=== PATIENT | female | born 1975 | race Caucasian/White ===

== ENCOUNTER 2016-11-16 09:49 | Emergency (ER) | payer OTHER ==
[2016-11-16 11:14] LABS: Hematocrit 43 % (35-47); Hemoglobin 14.5 g/dl (12.0-16.0); Mean Corpuscular HGB Conc 34 g/dl (31-36); Mean Corpuscular Hemoglobin 34 pg (27-31); Mean Corpuscular Volume 100 fL (80-97); Mean Platelet Volume 7 um3 (7.4-10.4); Red Blood Count 4.32 10^6/ul (4.0-5.4); Red Cell Distribution Width 14 % (10.5-15); White Blood Count 6.2 10^3/ul (3.5-10.8)
[2016-11-16 11:29] LABS: ALT 27 U/L (7-52); AST 29 U/L (13-39); Albumin 4.2 g/dL (3.2-5.2); Alkaline Phosphatase 50 U/L (34-104); Anion Gap 5 mmol/L (2-11); BUN/Creatinine Ratio 17.6 (8-20); Blood Urea Nitrogen 12 mg/dL (6-24); C Reactive Protein < 1.00 mg/L (< 5.00); CO2 Carbon Dioxide 30 mmol/L (22-32); Calcium 9.6 mg/dL (8.6-10.3); Chloride 103 mmol/L (101-111); EGFR African American 121.4 (>60); EGFR Non-African American 94.4 (>60); Globulin 3.4 g/dL (2-4); Glucose 109 mg/dL (70-100); Lipase 25 U/L (11.0-82.0); Potassium 4.2 mmol/L (3.5-5.0); Sodium 138 mmol/L (133-145); Total Protein 7.6 g/dL (6.4-8.9)
[2016-11-16 12:35] LABS: Urine Bacteria 2+ (Absent); Urine Bilirubin Negative (Negative); Urine Glucose Negative (Negative); Urine Nitrite Negative (Negative)
[2016-11-16] MEDS ORDERED: Iohexol 300* (CONTRAST) 10 ML SDV IV ONE (13:41)
--- NOTE | 2016-11-16 14:41 | RAD ---
Indication: Bilateral pelvic pain. History of Crohn's disease. Comparison: October 13, 2013 CT. Technique: Transvaginal pelvic ultrasound. Report: 8.0 x 2.7 x 5.0 cm anteverted uterus. No uterine lesions evident. IUD in place in the endometrial cavity. 5.7 mm endometrium. Physiologic small volume of free pelvic fluid. 3.8 x 1.9 x 1.6 cm RIGHT ovary with documented vascular flow is remarkable for a unilocular 1.8 x 1.4 x 1.6 cm cyst without complex features consistent with a follicular cyst. 5.1 x 3.2 x 2.9 cm LEFT ovary with documented vascular flow is remarkable for multiple follicles with a dominant 2.0 x 2.3 x 2.4 cm follicular cyst without complex features. No extraovarian adnexal region lesions evident. IMPRESSION: Bilateral small follicular cysts of the ovaries. IUD appears in appropriate position. Physiologic small volume of free fluid.
[2016-11-16] MEDS ORDERED: Ondansetron INJ* 2 MG/ML VIAL IV ONE (15:18)
[2016-11-16] MEDS ORDERED: Morphine INJ* 4 MG/ML 1 ML SYRINGE IV ONE (15:18)
[2016-11-16 16:21] VITALS: BP 109/77
--- NOTE | 2016-11-16 16:24 | RAD ---
INDICATION: Right lower quadrant abdominal pain. COMPARISON: Comparison is made with a prior CT of the abdomen and pelvis from October 13, 2013. TECHNIQUE: A CT scan of the abdomen and pelvis was performed with intravenous and oral contrast following intravenous injection of 67 ml of Omnipaque 300 nonionic contrast. Contiguous axial sections were obtained from the lung bases through the symphysis pubis. Images were reconstructed in the coronal and sagittal planes. FINDINGS: The lung bases are clear. No pleural effusion is present. The liver and spleen are within normal limits in size without significant focal abnormality. No calcified gallstones are seen. The pancreas appears to be within normal limits in size. The kidneys and adrenal glands are normal in size. No hydronephrosis is seen. No significant focal renal abnormality is seen. The aorta is normal in caliber and demonstrates homogeneous contrast opacification. No significant enlarged retroperitoneal lymph nodes are seen. The stomach is nondistended. There is mild small bowel distention. There is a focal area of circumferential narrowing and wall thickening at the ileal cecal junction which likely involves the distal ileum although I cannot exclude involvement of the cecum. The anatomy is not typical and may be related to prior surgical change. The appendix is not well visualized although there is no evidence for appendicitis. No free intraperitoneal air or fluid is seen. The uterus is anteverted and normal in size. There is a T-shaped IUD present. There is a 2.5 simple appearing cyst present in the left adnexal region. No free intraperitoneal air or fluid is seen. IMPRESSION: 1. THERE IS A FOCAL AREA OF CIRCUMFERENTIAL WALL THICKENING AND NARROWING AT THE ILEOCECAL JUNCTION LIKELY INVOLVING THE DISTAL ILEUM AND ADJACENT CECUM. THIS IS A NONSPECIFIC FINDING ALTHOUGH LIKELY SECONDARY TO AN EXACERBATION OF CROHN'S DISEASE. RECOMMEND CLINICAL CORRELATION AND CONSIDER COLONOSCOPY FOR FURTHER EVALUATION. 2. 2.5 CM LEFT OVARIAN CYST.
[2016-11-16] MEDS ORDERED: metroNIDAZOLE TAB* 250 MG PO ONE (16:57)
[2016-11-16] MEDS: predniSONE TAB* 20 MG PO ONE ×2 (17:12→17:33)
--- NOTE | 2016-11-29 17:36 | ED ---
Abner Glover Adam, scribed for Wesley Leonard MD on 11/16/16 at 1213 . Abdominal Pain/Female - HPI Summary HPI Summary: Pt is a 41 year old female presenting with abdominal pain. She states that the pain has been constant since it set on last night, waking the pt from sleep. It is described as an ache with intermittent stabbing pain. It does not radiate to the back. The pain is currently a 4/10. Pt has also been vomiting since shortly after the pain set on last night. She also c/o palpitations. She denies hematuria, dysuria, diarrhea, blood in stool, sore throat, cough, CP, SOB, and vaginal bleeding. PMHx of Crohn's for which she takes Purinethol. She sees Dr. Hernadez (GI). Surgical Hx of bowel resection at age 23, as well as tonsillectomy. LMP started on 11/05. - History of Current Complaint Chief Complaint: EDAbdPain Stated Complaint: ABD PAIN Time Seen by Provider: 11/16/16 10:42 Hx Obtained From: Patient Onset/Duration: Sudden Onset, Lasting Hours, Still Present Timing: Constant Severity Initially: Moderate Severity Currently: Moderate Pain Intensity: 8 Pain Scale Used: 0-10 Numeric Location: Diffuse Radiates: No Character: Sharp - Intermittent stabbing, Other: - Constant ache Aggravating Factor(s): Nothing Alleviating Factor(s): Nothing Associated Signs and Symptoms: Positive: Nausea, Vomiting, Other: - Palpitations Allergies/Adverse Reactions: Allergies Allergy/AdvReac Type Severity Reaction Status Date / Time Amoxicillin Allergy Severe Nausea Verified 11/16/16 10:17 Levofloxacin [From Levaquin] Allergy Severe Nausea Verified 11/16/16 10:17 Aloe Allergy Swelling Verified 11/16/16 10:17 Cinnamon Allergy Swelling Verified 11/16/16 10:17 Fluconazole [From Diflucan] Allergy Unknown Verified 11/16/16 10:17 Reaction Details PMH/Surg Hx/FS Hx/Imm Hx Respiratory History: Reports: Hx Seasonal Allergies GI History: Reports: Hx Crohn's Disease, Hx Gastroesophageal Reflux Disease, Other GI Disorders - CROHNS SPLENAMEGALY Musculoskeletal History: Reports: Hx Arthritis Sensory History: Reports: Hx Contacts or Glasses Opthamlomology History: Reports: Hx Contacts or Glasses Psychiatric History: Reports: Hx Anxiety, Hx Depression - Cancer History Hx Chemotherapy: No Hx Radiation Therapy: No - Surgical History Surgery Procedure, Year, and Place: bowel resection 1996; Bartholins cyst 2008; LEEP 1996; Tonsilectomy; urethra enlargement Infectious Disease History: No Infectious Disease History: Denies: Traveled Outside the [place] in Last 30 Days - Family History Known Family History: Positive: Other - Negative breast cancer - Social History Occupation: Employed Full-time - Self-employed Lives: Alone Alcohol Use: Daily Alcohol Amount: 2 drinks daily Hx Substance Use: No Substance Use Type: Reports: None Substance Use Comment - Amount & Last Used: oxymorphone Hx Tobacco Use: Yes Smoking Status (MU): Former Smoker Type: Cigarettes Amount Used/How Often: 5/day Have You Smoked in the Last Year: Yes Review of Systems Negative: Fever, Chills Negative: Erythema Negative: Sore Throat Positive: Palpitations. Negative: Chest Pain Negative: Shortness Of Breath, Cough Positive: Abdominal Pain, Vomiting, Nausea Negative: dysuria, hematuria Negative: Myalgia, Edema Negative: Rash All Other Systems Reviewed And Are Negative: Yes Physical Exam - Summary Physical Exam Summary: Constitutional: Well-developed, Well-nourished, Alert. (-) Distressed Skin: Warm, Dry HENT: Normocephalic; Atraumatic Eyes: Conjunctiva normal Neck: Musculoskeletal ROM normal neck. (-) JVD, (-) Stridor, (-) Tracheal deviation Cardio: Rhythm regular, rate normal, Heart sounds normal; Intact distal pulses; The pedal pulses are 2+ and symmetric. Radial pulses are 2+ and symmetric. (-) Murmur Pulmonary/Chest wall: Effort normal. (-) Respiratory distress, (-) Wheezes, (-) Rales Abd: Soft, (-) Tenderness, (-) Distension, (-) Guarding, (-) Rebound Musculoskeletal: (-) Edema Lymph: (-) Cervical adenopathy Neuro: Alert, Oriented x3 Psych: Mood and affect Normal Triage Information Reviewed: Yes Vital Signs On Initial Exam: Initial Vitals Temp Pulse Resp BP Pulse Ox 97.6 F 90 18 139/78 100 11/16/16 09:54 11/16/16 09:54 11/16/16 09:54 11/16/16 09:54 04/28/17 09:54 Vital Signs Reviewed: Yes - [place] Coma Scale Coma Scale Total: 15 Diagnostics - Vital Signs Vital Signs Temp Pulse Resp BP Pulse Ox 11/16/16 11:30 109/68 11/16/16 11:00 74 96 11/16/16 10:30 76 112/74 96 11/16/16 10:17 83 99 11/16/16 10:15 127/86 11/16/16 10:11 98.3 F 80 16 127/86 99 11/16/16 09:54 97.6 F 90 18 139/78 100 - Laboratory Lab Results: Lab Results 11/16/16 11/16/16 11/16/16 Range/Units 11:03 11:03 11:03 WBC 6.2 (3.5-10.8) 10^3/ul RBC 4.32 (4.0-5.4) 10^6/ul Hgb 14.5 (12.0-16.0) g/dl Hct 43 (35-47) % MCV 100 H (80-97) fL MCH 34 H (27-31) pg MCHC 34 (31-36) g/dl RDW 14 (10.5-15) % Plt Count 228 (150-450) 10^3/ul MPV 7 L (7.4-10.4) um3 Neut % (Auto) 83.0 (38-83) % Lymph % (Auto) 9.6 L (25-47) % [place] % (Auto) 6.5 (1-9) % Eos % (Auto) 0.7 (0-6) % Baso % (Auto) 0.2 (0-2) % Absolute Neuts (auto) 5.1 (1.5-7.7) 10^3/ul Absolute Lymphs (auto) 0.6 L (1.0-4.8) 10^3/ul Absolute Monos (auto) 0.4 (0-0.8) 10^3/ul Absolute Eos (auto) 0 (0-0.6) 10^3/ul Absolute Basos (auto) 0 (0-0.2) 10^3/ul Absolute Nucleated RBC 0 10^3/ul Nucleated RBC % 0 Sodium 138 (133-145) mmol/L Potassium 4.2 (3.5-5.0) mmol/L Chloride 103 (101-111) mmol/L Carbon Dioxide 30 (22-32) mmol/L Anion Gap 5 (2-11) mmol/L BUN 12 (6-24) mg/dL Creatinine 0.68 (0.51-0.95) mg/dL Est GFR ( Amer) 121.4 (>60) Est GFR (Non-Af Amer) 94.4 (>60) BUN/Creatinine Ratio 17.6 (8-20) Glucose 109 H (70-100) mg/dL Lactic Acid 0.5 (0.5-2.0) mmol/L Calcium 9.6 (8.6-10.3) mg/dL Total Bilirubin 0.70 (0.2-1.0) mg/dL AST 29 (13-39) U/L ALT 27 (7-52) U/L Alkaline Phosphatase 50 (34-104) U/L C-Reactive Protein < 1.00 (< 5.00) mg/L Total Protein 7.6 (6.4-8.9) g/dL Albumin 4.2 (3.2-5.2) g/dL Globulin 3.4 (2-4) g/dL Albumin/Globulin Ratio 1.2 (1-3) Lipase 25 (11.0-82.0) U/L Result Diagrams: 11/16/16 11:03 11/16/16 11:03 Lab Statement: Any lab studies that have been ordered have been reviewed, and results considered in the medical decision making process. - CT A/P CT Interpretation Completed By: Radiologist - IMPRESSION: 1. THERE IS A FOCAL AREA OF CIRCUMFERENTIAL WALL THICKENING AND NARROWING AT THE ILEOCECAL JUNCTION LIKELY INVOLVING THE DISTAL ILEUM AND ADJACENT CECUM. THIS IS A NONSPECIFIC FINDING ALTHOUGH LIKELY SECONDARY TO AN EXACERBATION OF CROHN'S DISEASE. RECOMMEND CLINICAL CORRELATION AND CONSIDER COLONOSCOPY FOR FURTHER EVALUATION. 2. 2.5 CM LEFT OVARIAN CYST. - Additional Comments Diagnostic Additional Comments: Transvaginal Ultrasound - IMPRESSION: Bilateral small follicular cysts of the ovaries. IUD appears in appropriate position. Physiologic small volume of free fluid. Abdominal Pain Fem Course/Dx - Course Course Of Treatment: Patient is willing to take prednisone. She is unwilling to take Flagyl due to prior GI issues. Cipro is inappropriate. She gets GI distress from Levaquin. Due to her sensitivities and at her request, she will be given prednisone only. She will follow up with Dr. Hernadez (GI) on Saturday. - Diagnoses Provider Diagnoses: Crohn's flare Discharge - Discharge Plan Condition: Stable Disposition: HOME Prescriptions: predniSONE TAB* [Deltasone TAB*] 40 mg PO DAILY #5 tab Patient Education Materials: Crohn Disease (ED) Referrals: Elías Waite MD [Primary Care Provider] - Additional Instructions: Follow up with Dr. Hernadez (Gastroenterology) on Saturday11/19/2016. The documentation as recorded by the Abner valera Adam accurately reflects the service I personally performed and the decisions made by , Wesley Leonard MD.
== END 2016-11-16 18:13 | disposition home or self-care (01) ==
LOC: ED 09:49
DX: K50.90 Crohn's disease, unspecified, without complications (principal); R10.9 Unspecified abdominal pain; R11.2 Nausea with vomiting, unspecified; R00.2 Palpitations; Z87.891 Personal history of nicotine dependence
CPT/HCPCS: 36415; 74177; 76830; 80053; 81003; 81015; 83605; 83690; 85025; 86140; 87086; 96374; 96375; 99283; A9270-GY; J2270; J2405; J7512; Q9967

== ENCOUNTER 2017-11-21 10:07 | Inpatient (IN) | payer OTHER ==
[2017-11-21] MEDS ORDERED: Ondansetron INJ* 2 MG/ML VIAL IV ONE ×2 (10:53→13:02)
[2017-11-21] MEDS ORDERED: NS 0.9% 1000 ML* 2,000 ML IV ONE (10:53)
[2017-11-21] MEDS ORDERED: Morphine INJ* 10 MG/ML 1 ML CARPUJECT IV ONE (10:54)
[2017-11-21] MEDS ORDERED: Morphine VIAL* 4 MG/ML VIAL (1 ml vial) IV ONE ×3 (10:54→17:02)
[2017-11-21 11:11] LABS: ABS Basophils 0 10^3/ul (0-0.2); ABS Eosinophils 0 10^3/ul (0-0.6); ABS Lymphocytes 3.1 10^3/ul (1.0-4.8); ABS Monocytes 0.7 10^3/ul (0-0.8); ABS Neutrophils 5.6 10^3/ul (1.5-7.7); ABS Nucleated RBC 0 10^3/ul; Eosinophil % 0.3 % (0-6); Hematocrit 43 % (35-47); Hemoglobin 14.7 g/dl (12.0-16.0); Lymphocyte % 32.8 % (25-47); Mean Corpuscular HGB Conc 34 g/dl (31-36); Mean Corpuscular Hemoglobin 36 pg (27-31); Mean Corpuscular Volume 104 fL (80-97); Mean Platelet Volume 6.6 um3 (7.4-10.4); Nucleated Red Blood Cells % 0.1; Platelet Count 209 10^3/ul (150-450); Red Blood Count 4.14 10^6/ul (4.0-5.4); Red Cell Distribution Width 14 % (10.5-15); White Blood Count 9.5 10^3/ul (3.5-10.8)
[2017-11-21 11:30] LABS: EGFR Non-African American 57.6 (>60)
[2017-11-21 12:15] LABS: INR 0.88 (0.77-1.02)
[2017-11-21] MEDS ORDERED: Iodixanol* (CONTRAST) 320 MG/ML 100 ML SDV IV ONE (12:35)
[2017-11-21] MEDS ORDERED: Morphine INJ* 4 MG/ML 1 ML CARPUJECT IV ONE (13:02)
[2017-11-21] MEDS ORDERED: diPHENhydraMINE IV* 50 MG/ML 1 ml VIAL (BENADRYL) SLOW PUSH ONE (13:16)
[2017-11-21] MEDS ORDERED: Ondansetron ODT TAB* 4 MG PO ONE (13:18)
[2017-11-21] MEDS ORDERED: Ondansetron ODT TAB* 4 MG ONE (13:20)
--- NOTE | 2017-11-21 13:26 | RAD ---
INDICATION: Abdominal pain. Crohn disease COMPARISON: November 08, 2016 TECHNIQUE: Axial source images were obtained from the hemidiaphragms to the symphysis pubis following administration of oral and intravenous contrast. 60 mL Visipaque 320 was utilized. Coronal and sagittal reconstructed images were acquired. Lung bases: The lung bases are clear. Liver: The liver is normal in size. There are no masses. There is no ductal dilatation. Gallbladder: There are no calcified gallstones. There is no evidence of wall thickening or pericholecystic fluid. Spleen: The spleen is normal in size. There are no masses. Pancreas: There is no focal pancreatic mass or ductal dilatation. Adrenal glands: There is no evidence of adrenal mass. Kidneys: The kidneys are normal in size and position. There are prompt nephrograms and there is prompt excretion bilaterally. There are no renal parenchymal masses. There is no evidence of nephrolithiasis. Adenopathy: There is no evidence of adenopathy by size criteria. Fluid collections: There is a small amount of free fluid in the right paracolic gutter and cul-de-sac. Vessels:There are no significant atherosclerotic changes involving the aorta. There is no focal aneurysm. The iliac vessels are normal in caliber. The IVC appears normal. GI tract: The stomach is mildly distended with contrast. There are multiple dilated loops of small bowel many of which are fluid-filled. The small bowel loops measure up to 3 cm. There are postsurgical changes at the level of the terminal ileum/cecum. The colon is decompressed. Pelvic organs: The uterus and adnexa appear normal. There is an IUD Bladder: There are no bladder masses. Abdominal and pelvic soft tissues: The extraperitoneal abdominal and pelvic soft tissues appear normal.. Osseous structures: There are no acute osseous findings. Other: None IMPRESSION: THERE IS A MODERATE GRADE DISTAL SMALL BOWEL OBSTRUCTION BELIEVED TO BE AT THE DISTAL ILEUM PROBABLY AT THE SITE OF PRIOR RESECTION. THERE IS A SMALL AMOUNT OF FREE FLUID. THERE IS NO EVIDENCE OF LOCALIZED FLUID COLLECTION TO SUGGEST ABSCESS FORMATION.
[2017-11-21] MEDS ORDERED: Morphine VIAL* 4 MG/ML VIAL (1 ml vial) IV PRN (16:12)
[2017-11-21] MEDS ORDERED: KCL 20 MEQ/100 ML IVPREMIX* 20 MEQ/100 ML BAG IV ONE (16:14)
--- NOTE | 2017-11-21 17:05 | ED ---
Tj Glover Gabriel, scribed for Mariano Nieto MD on 11/21/17 at 1052 . Abdominal Pain/Female - HPI Summary HPI Summary: This patient is a 42 year old F presenting to [facility] with a chief complaint of a Chrons flair up for the last few months. The patient rates the pain 9/10 in severity. Patient reports ABD pain, nausea, and diarrhea. Patient denies blood in her stool. Pt is currently transitioning medication for her Chrons. She was on her previous medication for 17 years and 6 weeks ago she began taking Humira. She also began taking 60mg prednisone 4 weeks ago. Pt had a colonoscopy during this flair up which showed general inflammation and some stricture. Pt is concerned for a SBO and her last BM was diarrhea this morning. 20 years ago the patient had a partial colectomy. - History of Current Complaint Chief Complaint: EDAbdPain Stated Complaint: CROHNS FLARE UP Time Seen by Provider: 11/21/17 10:40 Hx Obtained From: Patient Onset/Duration: Lasting Weeks - months, Still Present Timing: Constant Severity Initially: Severe Severity Currently: Severe Pain Intensity: 9 Pain Scale Used: 0-10 Numeric Location: Diffuse Radiates: No Associated Signs and Symptoms: Positive: Nausea, Diarrhea Allergies/Adverse Reactions: Allergies Allergy/AdvReac Type Severity Reaction Status Date / Time aloe Allergy Swelling Verified 11/21/17 10:12 amoxicillin Allergy Nausea Verified 11/21/17 10:12 cinnamon Allergy Swelling Verified 11/21/17 10:12 fluconazole [From Diflucan] Allergy Unknown Verified 11/21/17 10:12 Reaction Details levofloxacin [From Levaquin] Allergy Nausea Verified 11/21/17 10:12 PMH/Surg Hx/FS Hx/Imm Hx Endocrine/Hematology History: Denies: Hx Diabetes Cardiovascular History: Denies: Hx Hypertension, Hx Pacemaker/ICD Respiratory History: Reports: Hx Seasonal Allergies GI History: Reports: Hx Crohn's Disease, Hx Gastroesophageal Reflux Disease, Other GI Disorders - CROHNS SPLENAMEGALY History: Denies: Hx Renal Disease Musculoskeletal History: Reports: Hx Arthritis Sensory History: Reports: Hx Contacts or Glasses Denies: Hx Hearing Aid Opthamlomology History: Reports: Hx Contacts or Glasses Psychiatric History: Reports: Hx Anxiety, Hx Depression Denies: Hx Panic Disorder - Cancer History Hx Chemotherapy: No Hx Radiation Therapy: No - Surgical History Surgery Procedure, Year, and Place: bowel resection 1996; Bartholins cyst 2008; LEEP 1996; Tonsilectomy; urethra enlargement Infectious Disease History: No Infectious Disease History: Denies: Traveled Outside the [place] in Last 30 Days - Family History Known Family History: Positive: Other - Negative breast cancer Negative: Seizure Disorder - Social History Lives: With Family Alcohol Use: Weekly Alcohol Amount: 10 drinks per week Hx Substance Use: No Substance Use Type: Reports: None Substance Use Comment - Amount & Last Used: oxymorphone Hx Tobacco Use: Yes Smoking Status (MU): Former Smoker Type: Cigarettes Amount Used/How Often: 5/day Have You Smoked in the Last Year: Yes Review of Systems Gastrointestinal: Negative - blood in stool Positive: Abdominal Pain, Diarrhea, Nausea Negative: Rash All Other Systems Reviewed And Are Negative: Yes Physical Exam - Summary Physical Exam Summary: General: well-appearing, moderate pain distress Skin: warm, color reflects adequate perfusion, dry Head: normal Eyes: EOMI, [place] ENT: normal Neck: supple, nontender Respiratory: CTA, breath sounds present Cardiovascular: RRR Abdomen: periumbillicar region is TTP Bowel: bowel sounds are hypoactive Musculoskeletal: normal, strength/ROM intact Neurological: normal, sensory/motor intact, A&O x3 Psychological: affect/mood appropriate Triage Information Reviewed: Yes Vital Signs On Initial Exam: Initial Vitals Temp Pulse Resp BP Pulse Ox 99.1 F 82 18 154/91 99 11/21/17 10:09 11/21/17 10:09 11/21/17 10:09 11/21/17 10:09 11/21/17 10:09 Vital Signs Reviewed: Yes Diagnostics - Vital Signs Vital Signs Temp Pulse Resp BP Pulse Ox 11/21/17 10:09 99.1 F 82 18 154/91 99 - Laboratory Lab Results: Lab Results 11/21/17 11/21/17 11/21/17 Range/Units 10:54 10:54 11:44 WBC 9.5 (3.5-10.8) 10^3/ul RBC 4.14 (4.0-5.4) 10^6/ul Hgb 14.7 (12.0-16.0) g/dl Hct 43 (35-47) % MCV 104 H (80-97) fL MCH 36 H (27-31) pg MCHC 34 (31-36) g/dl RDW 14 (10.5-15) % Plt Count 209 (150-450) 10^3/ul MPV 6.6 L (7.4-10.4) um3 Neut % (Auto) 59.4 (38-83) % Lymph % (Auto) 32.8 (25-47) % [place] % (Auto) 7.2 H (0-7) % Eos % (Auto) 0.3 (0-6) % Baso % (Auto) 0.3 (0-2) % Absolute Neuts (auto) 5.6 (1.5-7.7) 10^3/ul Absolute Lymphs (auto) 3.1 (1.0-4.8) 10^3/ul Absolute Monos (auto) 0.7 (0-0.8) 10^3/ul Absolute Eos (auto) 0 (0-0.6) 10^3/ul Absolute Basos (auto) 0 (0-0.2) 10^3/ul Absolute Nucleated RBC 0 10^3/ul Nucleated RBC % 0.1 INR (Anticoag Therapy) 0.88 (0.77-1.02) Sodium 141 (139-145) mmol/L Potassium 3.4 L (3.5-5.0) mmol/L Chloride 102 (101-111) mmol/L Carbon Dioxide 32 (22-32) mmol/L Anion Gap 7 (2-11) mmol/L BUN 14 (6-24) mg/dL Creatinine 1.04 H (0.51-0.95) mg/dL Est GFR ( Amer) 74.0 (>60) Est GFR (Non-Af Amer) 57.6 (>60) BUN/Creatinine Ratio 13.5 (8-20) Glucose 92 (70-100) mg/dL Lactic Acid (0.5-2.0) mmol/L Calcium 9.7 (8.6-10.3) mg/dL Total Bilirubin 1.00 (0.2-1.0) mg/dL AST 28 (13-39) U/L ALT 37 (7-52) U/L Alkaline Phosphatase 50 (34-104) U/L C-Reactive Protein < 1.00 (< 5.00) mg/L Total Protein 7.2 (6.4-8.9) g/dL Albumin 4.3 (3.2-5.2) g/dL Globulin 2.9 (2-4) g/dL Albumin/Globulin Ratio 1.5 (1-3) Lipase 26 (11.0-82.0) U/L 11/21/17 Range/Units 11:44 WBC (3.5-10.8) 10^3/ul RBC (4.0-5.4) 10^6/ul Hgb (12.0-16.0) g/dl Hct (35-47) % MCV (80-97) fL MCH (27-31) pg MCHC (31-36) g/dl RDW (10.5-15) % Plt Count (150-450) 10^3/ul MPV (7.4-10.4) um3 Neut % (Auto) (38-83) % Lymph % (Auto) (25-47) % [place] % (Auto) (0-7) % Eos % (Auto) (0-6) % Baso % (Auto) (0-2) % Absolute Neuts (auto) (1.5-7.7) 10^3/ul Absolute Lymphs (auto) (1.0-4.8) 10^3/ul Absolute Monos (auto) (0-0.8) 10^3/ul Absolute Eos (auto) (0-0.6) 10^3/ul Absolute Basos (auto) (0-0.2) 10^3/ul Absolute Nucleated RBC 10^3/ul Nucleated RBC % INR (Anticoag Therapy) (0.77-1.02) Sodium (139-145) mmol/L Potassium (3.5-5.0) mmol/L Chloride (101-111) mmol/L Carbon Dioxide (22-32) mmol/L Anion Gap (2-11) mmol/L BUN (6-24) mg/dL Creatinine (0.51-0.95) mg/dL Est GFR ( Amer) (>60) Est GFR (Non-Af Amer) (>60) BUN/Creatinine Ratio (8-20) Glucose (70-100) mg/dL Lactic Acid 1.2 (0.5-2.0) mmol/L Calcium (8.6-10.3) mg/dL Total Bilirubin (0.2-1.0) mg/dL AST (13-39) U/L ALT (7-52) U/L Alkaline Phosphatase (34-104) U/L C-Reactive Protein (< 5.00) mg/L Total Protein (6.4-8.9) g/dL Albumin (3.2-5.2) g/dL Globulin (2-4) g/dL Albumin/Globulin Ratio (1-3) Lipase (11.0-82.0) U/L Result Diagrams: 11/21/17 10:54 11/21/17 10:54 Lab Statement: Any lab studies that have been ordered have been reviewed, and results considered in the medical decision making process. - CT CT ABD/Pelvis CT Interpretation Completed By: Radiologist - THERE IS A MODERATE GRADE DISTAL SMALL BOWEL OBSTRUCTION BELIEVED TO BE AT THE DISTAL ILEUM PROBABLY AT THE SITE OF PRIOR RESECTION. THERE IS A SMALL AMOUNT OF FREE FLUID. THERE IS NO EVIDENCE OF LOCALIZED FLUID COLLECTION TO SUGGEST ABSCESS FORMATION. ED physician has reviewed this radiology report. Abdominal Pain Fem Course/Dx - Course Course Of Treatment: DISCUSSED WITH SURGERY, DR GREGG, AND HOSPITALIST. ADMIT HOSPITALIST. CRITICAL CARE TIME LESS THAN 30 MINUTES. - Diagnoses Provider Diagnoses: Abdominal pain, Crohn's disease with intestinal obstruction Discharge - Sign-Out/Discharge Documenting (check all that apply): Discharge/Admit/Transfer - admitted to Dr. Hightower - Discharge Plan Condition: Stable Disposition: [facility] Disposition and Condition Condition: STABLE Disposition: [facility] Consult Consult: 13:45We discussed patient care with Dr. Gregg and they recommended admitting the patient to the hospitalist. 14:37 We discussed patient care with Dr. Hightower and they have accepted the patient for admission. The documentation as recorded by the Tj valera Gabriel accurately reflects the service I personally performed and the decisions made by me, Mariano Nieto MD.
[2017-11-21] MEDS: methylPREDNISolone SOD 40 MG* 1 ML VIAL IV SCH (17:06)
[2017-11-21] MEDS: Ondansetron INJ* 2 MG/ML VIAL IV PRN (17:44)
[2017-11-21] MEDS: KCL premix 10MEQ/50 ML x 2 BAGS IV SCH ×2 (17:45→21:09)
--- NOTE | 2017-11-21 20:15 | CONS ---
CC: [facility] * CONSULTATION REPORT: DATE OF CONSULT: 11/21/17 CHIEF COMPLAINT: Abdominal pain. HISTORY OF PRESENT ILLNESS: The patient is a 42-year-old female with a longstanding history of Crohn's disease. She had what sounds like an ileocecal resection done may be 20 years ago. She said she has been stable on 6-MP for may be 15 years or more, but started to have some liver toxicity, so they have been trying to change her medications. This flare-up has been going on for a few months characterized primarily by pain. She often has irregularity of her bowel movements and may be that has been a little heightened. She comes in today with a greater degree of pain and she has been having of late no vomiting , but she is having nausea. She has had some diarrhea earlier today. No blood in the stool. She had a colonoscopy performed about 6 weeks ago, which showed active ulceration in the region of the anastomosis as well as some stricturing at the anastomosis. She has recently been started on Humira in addition to the steroids. PHYSICAL EXAMINATION: On examination, she is a well-developed, well-nourished slender female, does not appear acutely ill, but does appear acutely uncomfortable. Skin is warm, well perfused. She is not diaphoretic. She is not jaundiced. Abdomen appears distended. There is some tympany. There is mild diffuse tenderness, may be more in the periumbilical region than elsewhere. There is no rebound tenderness. No guarding. There is a hypertrophic scar in the infraumbilical region. She states that at the time of her previous surgery, she had a postop wound infection that took a long time to heal. LABORATORY DATA: Her laboratory studies show normal white count, normal differential, normal INR, essentially normal electrolytes. C-reactive protein is normal. IMAGING: Her CT scan shows dilated small bowel to about 3 cm, which appears to go all the way up to the ileocolic anastomosis. IMPRESSION: A 42-year-old female with longstanding Crohn's disease battling through a recent flare-up who has a partial bowel obstruction in what appears to be at the region of the prior disease. She has a relatively recent colonoscopy that shows active disease in that region. PLAN: At this point, there is no need for emergent surgery and I recommend gastroenterology evaluation to see what other medical therapies may be helpful. We will follow her somewhat peripherally at present, but if she does not respond to medical therapy or worsens in any way, we can revisit the issue of whether surgery is warranted. [id number]/[facility] #: [id number] MTDGary
--- NOTE | 2017-11-21 20:48 | HP ---
CC: Dr. Waite.* HISTORY AND PHYSICAL: DATE OF ADMISSION: 11/21/17. PROVIDER: Leanne Grant NP. PRIMARY CARE PROVIDER: Dr. Waite. ATTENDING PHYSICIAN WHILE IN THE HOSPITAL: Dr. Tyler Hightower * (dictated by Leanne Grant NP). CHIEF COMPLAINT: Abdominal pain. HISTORY OF PRESENT ILLNESS: Ms. Azar is a 42-year-old female, who has a history of Crohn's disease and arthritis, who presented to the emergency room with progressively worsening lower abdominal pain x2 days, more severe overnight , nausea. The patient reports that she has been in a Crohn's flare for 3 months and that she has been being worked up by her frame repairer as an outpatient. She denies any fever or chills. She denies any vomiting. She does report nausea and diarrhea. She does report some lower abdominal pain. She denies any cough or congestion. Denies any hemoptysis or shortness of breath. Denies any loss of appetite. While in the emergency room, she had routine lab work drawn and a CT of the abdomen and pelvis which showed small bowel obstruction. Given these results, we were asked to see and evaluate her for admission. PAST MEDICAL HISTORY: 1. Crohn's disease. 2. Arthritis. PAST SURGICAL HISTORY: Bowel resection. MEDICATIONS: Home medications include: 1. Oxymorphone 5 mg q.i.d. 2. Prednisone 60 mg p.o. daily. 3. Humira every 2 weeks, doses due on Saturday, November 25. 5. Hyoscyamine 0.375 mg p.o. daily p.r.n. 6. Calcium carbonate 1200 mg p.o. daily. 7. Probiotics 1 cap daily. 8. Ascorbic acid 1000 mg daily. 9. Vitamin D 1000 units daily. 10. Vitamin B complex 1 tablet p.o. daily. ALLERGIES TO MEDICATIONS: She is allergic to, 1. ALOE. 2. AMOXICILLIN. 3. CINNAMON. 4. DIFLUCAN. 5. LEVOFLOXACIN. FAMILY HISTORY: Denies any history of coronary artery disease and denies any diabetes within the family. Reports one grandmother had uterine cancer, another grandmother had lung cancer. SOCIAL HISTORY: She denies any tobacco or illicit drug use. She does report occasional alcohol use. She is single. In the event if she is unable to make her own medical decisions, her friend, Ortiz would make medical decisions for her. She is a full code. REVIEW OF SYSTEMS: There is no documented fevers. No significant weight loss. She denies any ear drainage. She denies any rhinorrhea. She does complain of a dry mouth. She denies any chest pain. Denies orthopnea, nocturnal dyspnea. She denies any shortness of breath. She does report lower abdominal pain that has for the last week that is progressively getting worse over the past 2 days and then more severe overnight. She does report some nausea. Denies any vomiting. No dysuria or urinary frequency. There is no seizures. No loss of consciousness. No pruritus. No skin ulcerations. Review of 14 systems was completed and all others were negative. PHYSICAL EXAMINATION GENERAL: At this time, Ms. Azar is a 42-year-old female, she appears comfortable, resting on the stretcher in the emergency room. She is not in any acute distress. VITAL SIGNS: As follows, blood pressure 124/87, pulses 91, oxygen saturation is 95%, temperature was 99.1. HEENT: Head is atraumatic, normocephalic. Eyes: EOMs are intact. Sclerae anicteric and not pale. Oral mucosa appears to be moist. NECK: Supple. LUNGS: Clear to auscultation bilaterally. No wheezes, rales, or rhonchi. CARDIAC: S1, S2. Regular rate and rhythm. No murmurs, rubs, or gallops. ABDOMEN: Soft, flat with diffuse increased tenderness to the left lower quadrant. Bowel sounds are present x4. EXTREMITIES: Pulses are +2 throughout. She is able to move all 4 extremities with 5/5 strength. NEUROLOGIC: She is alert and oriented x3. Speech is clear. There is no focal deficits. SKIN: Intact. DIAGNOSTIC STUDIES AND LABORATORY DATA: WBC were 9.5, RBC is 4.14, hemoglobin 14.7, hematocrit was 43, platelet count was 209. INR was 0.88. Sodium 141, potassium 3.4, chloride was 102, carbon dioxide was 32, anion gap was 7, BUN was 14, creatinine was 1.04, glucose of 92, lactic acid was 1.2. AST was 28, ALT was 37. C-reactive protein was less than 1. Lipase was 26. CT of the abdomen and pelvis, radiologist's impression: There is a moderate distal small bowel obstruction believed to be at the distal ilium probably at the site of prior resection. There is a small amount of free fluid. There is no evidence of localized fluid collection to suggest abscess formation in the GI tract. The stomach was mildly distended to the contrast. There were multiple dilated loops of small bowel, many of which were fluid filled. The small bowel loops measure up to 3 cm. There are some post-surgical changes at the level of the terminal ileum and the cecum. The colon is decompressed. ASSESSMENT AND PLAN: Ms. Azar is a 42-year-old female, who has a history of Crohn's disease and arthritis presented to the emergency room with a progressively worsening abdominal pain over the past 2 days with increased abdominal pain overnight. She will be admitted inpatient for: 1. Abdominal pain. I suspect that this is probably related to her small bowel obstruction. She does have a history of Crohn's disease, which she reports has been in a flare x3 months, and has been worked up as an outpatient for management of her Crohn's flare up. I have consulted surgery, Dr. Stone and I will consult GI as well. She will be n.p.o. We will start LR at 75 cc/hour. She will have Morphine for pain as needed. 2. Crohn's disease. She has 3 months history of a Crohn's flare-up, which she has had been worked up as an outpatient. She is currently on prednisone 60 mg p.o. daily and Humira q.2 weeks with a dose due on 11/25/17. Again, I will consult frame repairer for recommendations. 3. Hypokalemia. I will give her 20 mEq of potassium IV. Elevated creatinine at 1.04. Her baseline level is usually 0.68. We will continue to monitor this. 4. Diet. She will be n.p.o. 5. DVT prophylaxis. I will place her on SCDs. 6. Code status. She is a full code. TIME SPENT: Time spent on this admission was approximately 60 minutes, greater than half that time was spent [id number] with the patient obtaining my history and physical, the other half of the time was spent going over my plan of care and implementing the plan of care. I have discussed this with my attending, Dr. Tyler Hightower, and he is in agreement with my plan. LEANNE GRANT, AQUATIC FACILITY MANAGER [id number]/[facility] #: [id number] [facility]OSPITALGary
[2017-11-21] MEDS: Morphine VIAL* 4 MG/ML VIAL (1 ml vial) IV PRN (21:16)
[2017-11-22] MEDS: methylPREDNISolone SOD 40 MG* 1 ML VIAL IV SCH ×3 (00:41→16:57)
[2017-11-22 01:07] LABS: Urine Appearance Cloudy; Urine Blood 2+ (Negative); Urine Color Yellow; Urine Ketones Trace (Negative); Urine Protein Negative (Negative); Urine Urobilinogen Negative (Negative)
[2017-11-22 05:45] LABS: ABS Basophils 0 10^3/ul (0-0.2); ABS Eosinophils 0 10^3/ul (0-0.6); ABS Lymphocytes 0.6 10^3/ul (1.0-4.8); ABS Monocytes 0.1 10^3/ul (0-0.8); ABS Neutrophils 8.7 10^3/ul (1.5-7.7); ABS Nucleated RBC 0 10^3/ul; Eosinophil % 0 % (0-6); Hematocrit 39 % (35-47); Hemoglobin 13.6 g/dl (12.0-16.0); Lymphocyte % 6.5 % (25-47); Mean Corpuscular HGB Conc 35 g/dl (31-36); Mean Corpuscular Hemoglobin 36 pg (27-31); Mean Corpuscular Volume 103 fL (80-97); Mean Platelet Volume 6.9 um3 (7.4-10.4); Nucleated Red Blood Cells % 0; Platelet Count 187 10^3/ul (150-450); Red Blood Count 3.82 10^6/ul (4.0-5.4); Red Cell Distribution Width 14 % (10.5-15); White Blood Count 9.5 10^3/ul (3.5-10.8)
[2017-11-22 06:04] LABS: EGFR Non-African American 70.7 (>60)
[2017-11-22] MEDS: Morphine VIAL* 4 MG/ML VIAL (1 ml vial) IV PRN ×6 (08:46→21:28)
--- NOTE | 2017-11-22 10:54 | PN ---
Progress Note - Progress Note Date of Service: 11/22/17 Note: HD#2 SBO w/ Crohn's flare Afeb UO large Less pain, feels a little better, no flatus, No n/v add--soft, distillery worker general, though less than yest, seems less distended I reviewed photos from colonoscopy, and d/w Dr Almonte Impr SBO seems to be improving Medical treatment of Crohn's per Gastro No surgery unless medical options exhausted
--- NOTE | 2017-11-22 11:08 | RAD ---
Indication: Small bowel obstruction Comparison: November 21, 2017 CT Technique: Supine view of the abdomen. Report: Resolution of small bowel dilatation. Distal propagation of enteric contrast to the colon. Negative for colonic dilatation. Pelvic phleboliths. No suspicious calcifications or mass effect. IUD noted. Unremarkable soft tissue contours. IMPRESSION: Interval resolution of small bowel obstruction.
--- NOTE | 2017-11-22 12:40 | PN ---
Subjective Date of Service: 11/22/17 Interval History: Patient states that she is feeling better, abd pain is controlled, continue to c/o diffuse abd tenderness Denies chest pain or shortness of breath. Denies n/v /d Family History: Unchanged from Admission Social History: Unchanged from Admission Past Medical History: Unchanged from Admission Objective Active Medications: Lactated Ringer's (Lactated Ringers 1000 Ml Bag*) 1,000 mls @ 75 mls/hr IV PER RATE [facility] Last Admin: 11/22/17 05:59 Dose: 75 mls/hr Methylprednisolone Sodium Succinate (Solu-Medrol 40 Mg) 20 mg IV Q8H [facility] Last Admin: 11/22/17 08:47 Dose: 20 mg Morphine Sulfate (Morphine Vial*) 2 mg IV Q2H PRN PRN Reason: PAIN - MODERATE TO SEVERE Last Admin: 11/22/17 11:00 Dose: 2 mg Ondansetron HCl (Zofran Inj*) 4 mg IV Q4H PRN PRN Reason: NAUSEA/VOMITING Last Admin: 11/21/17 17:44 Dose: 4 mg Vital Signs - 8 hr 11/22/17 11/22/17 11/22/17 07:52 08:00 08:46 Temperature 98.4 F Pulse Rate 70 Respiratory 13 15 15 Rate Blood Pressure 112/66 (mmHg) O2 Sat by Pulse 98 Oximetry 11/22/17 11/22/17 11/22/17 11:00 11:21 11:27 Temperature 98.5 F Pulse Rate 80 Respiratory 16 18 16 Rate Blood Pressure 143/86 (mmHg) O2 Sat by Pulse 97 Oximetry Oxygen Devices in Use Now: None Appearance: appears comfortable restingin bed. no acute distress Eyes: No Scleral Icterus Ears/Nose/Mouth/Throat: Clear Oropharnyx, Mucous Membranes Moist Neck: NL Appearance and Movements; NL JVP, Trachea Midline Respiratory: Symmetrical Chest Expansion and Respiratory Effort, Clear to Auscultation Cardiovascular: NL Sounds; No Murmurs; No JVD, No Edema Abdominal: NL Sounds; No Tenderness; No Distention, - - BS active x 4 , abd mildly distended, diffuse tenderness to palpation, mainly in the umbilical and RUQ Lymphatic: No Cervical Adenopathy Extremities: No Edema, No Clubbing, Cyanosis Skin: No Rash or Ulcers Neurological: Alert and Oriented x 3, NL Gait, NL Muscle Strength and Tone Nutrition: - - NPO Result Diagrams: 11/22/17 05:29 11/22/17 05:29 Additional Lab and Data: Lab Results 11/21/17 11/21/17 11/21/17 Range/Units 10:54 10:54 11:44 WBC 9.5 (3.5-10.8) 10^3/ul RBC 4.14 (4.0-5.4) 10^6/ul Hgb 14.7 (12.0-16.0) g/dl Hct 43 (35-47) % MCV 104 H (80-97) fL MCH 36 H (27-31) pg MCHC 34 (31-36) g/dl RDW 14 (10.5-15) % Plt Count 209 (150-450) 10^3/ul MPV 6.6 L (7.4-10.4) um3 Neut % (Auto) 59.4 (38-83) % Lymph % (Auto) 32.8 (25-47) % [place] % (Auto) 7.2 H (0-7) % Eos % (Auto) 0.3 (0-6) % Baso % (Auto) 0.3 (0-2) % Absolute Neuts (auto) 5.6 (1.5-7.7) 10^3/ul Absolute Lymphs (auto) 3.1 (1.0-4.8) 10^3/ul Absolute Monos (auto) 0.7 (0-0.8) 10^3/ul Absolute Eos (auto) 0 (0-0.6) 10^3/ul Absolute Basos (auto) 0 (0-0.2) 10^3/ul Absolute Nucleated RBC 0 10^3/ul Nucleated RBC % 0.1 INR (Anticoag Therapy) 0.88 (0.77-1.02) Sodium 141 (139-145) mmol/L Potassium 3.4 L (3.5-5.0) mmol/L Chloride 102 (101-111) mmol/L Carbon Dioxide 32 (22-32) mmol/L Anion Gap 7 (2-11) mmol/L BUN 14 (6-24) mg/dL Creatinine 1.04 H (0.51-0.95) mg/dL Est GFR ( Amer) 74.0 (>60) Est GFR (Non-Af Amer) 57.6 (>60) BUN/Creatinine Ratio 13.5 (8-20) Glucose 92 (70-100) mg/dL Lactic Acid (0.5-2.0) mmol/L Calcium 9.7 (8.6-10.3) mg/dL Total Bilirubin 1.00 (0.2-1.0) mg/dL AST 28 (13-39) U/L ALT 37 (7-52) U/L Alkaline Phosphatase 50 (34-104) U/L C-Reactive Protein < 1.00 (< 5.00) mg/L Total Protein 7.2 (6.4-8.9) g/dL Albumin 4.3 (3.2-5.2) g/dL Globulin 2.9 (2-4) g/dL Albumin/Globulin Ratio 1.5 (1-3) Lipase 26 (11.0-82.0) U/L 11/21/17 Range/Units 11:44 WBC (3.5-10.8) 10^3/ul RBC (4.0-5.4) 10^6/ul Hgb (12.0-16.0) g/dl Hct (35-47) % MCV (80-97) fL MCH (27-31) pg MCHC (31-36) g/dl RDW (10.5-15) % Plt Count (150-450) 10^3/ul MPV (7.4-10.4) um3 Neut % (Auto) (38-83) % Lymph % (Auto) (25-47) % [place] % (Auto) (0-7) % Eos % (Auto) (0-6) % Baso % (Auto) (0-2) % Absolute Neuts (auto) (1.5-7.7) 10^3/ul Absolute Lymphs (auto) (1.0-4.8) 10^3/ul Absolute Monos (auto) (0-0.8) 10^3/ul Absolute Eos (auto) (0-0.6) 10^3/ul Absolute Basos (auto) (0-0.2) 10^3/ul Absolute Nucleated RBC 10^3/ul Nucleated RBC % INR (Anticoag Therapy) (0.77-1.02) Sodium (139-145) mmol/L Potassium (3.5-5.0) mmol/L Chloride (101-111) mmol/L Carbon Dioxide (22-32) mmol/L Anion Gap (2-11) mmol/L BUN (6-24) mg/dL Creatinine (0.51-0.95) mg/dL Est GFR ( Amer) (>60) Est GFR (Non-Af Amer) (>60) BUN/Creatinine Ratio (8-20) Glucose (70-100) mg/dL Lactic Acid 1.2 (0.5-2.0) mmol/L Calcium (8.6-10.3) mg/dL Total Bilirubin (0.2-1.0) mg/dL AST (13-39) U/L ALT (7-52) U/L Alkaline Phosphatase (34-104) U/L C-Reactive Protein (< 5.00) mg/L Total Protein (6.4-8.9) g/dL Albumin (3.2-5.2) g/dL Globulin (2-4) g/dL Albumin/Globulin Ratio (1-3) Lipase (11.0-82.0) U/L Assess/Plan/Problems-Billing Assessment: Ms. Azar is a 42 y.o female with a long standing hx of crohn's disease, bowel resection that presented to the emergency room with increased abd pain. CT of the ABD showed SBO. - Patient Problems (1) SBO (small bowel obstruction) Current Visit: Yes Status: Acute Code(s): K56.609 - UNSP INTESTNL OBST, UNSP TO PARTIAL VERSUS COMPLETE OBST SNOMED Code(s): 471121529 Comment: - Will remain NPO - LR at 75 cc/ hr - consult to GI- pending - surgery consulted -- no need for emergent surgery at this time. (2) Crohn's disease Current Visit: Yes Status: Acute Code(s): K50.90 - CROHN'S DISEASE, UNSPECIFIED, WITHOUT COMPLICATIONS SNOMED Code(s): 93851255 Comment: - will continue solumedrol 20 mg Q8H- patient has been 60 mg prednisone at home for 4 weeks - NPO for now - Dose of Humeria is due on saturday11/25/2017 (3) Arthritis Current Visit: Yes Status: Acute Code(s): M19.90 - UNSPECIFIED OSTEOARTHRITIS, UNSPECIFIED SITE SNOMED Code(s): 6790649 Comment: - patient take oxymorphone at home for pain- 5mg TID- will hold for now as she is NPO - recieiving Morphine 2 mg Q 2 hours as neded for abd pain. - no c/o of arthritic pain today. (4) DVT prophylaxis Current Visit: Yes Status: Acute Code(s): FXX2347 - SNOMED Code(s): 371915595 Comment: - SCD's, ambulate (5) Full code status Current Visit: Yes Status: Acute Code(s): Z78.9 - OTHER SPECIFIED HEALTH STATUS SNOMED Code(s): 513656537 Status and Disposition: inpatient
[2017-11-22] MEDS: Albuterol/Ipratropium NEB.SOL* Albuterol 2.5 MG/Ipratropium 0.5 MG 3 ML INH SCH ×2 (20:07→23:46)
[2017-11-23] MEDS: methylPREDNISolone SOD 40 MG* 1 ML VIAL IV SCH ×3 (01:02→18:22)
[2017-11-23] MEDS: Morphine VIAL* 4 MG/ML VIAL (1 ml vial) IV PRN ×3 (01:35→09:51)
[2017-11-23] MEDS: Albuterol/Ipratropium NEB.SOL* Albuterol 2.5 MG/Ipratropium 0.5 MG 3 ML INH SCH ×2 (03:50→07:36)
[2017-11-23] MEDS ORDERED: Albuterol 2.5 MG/3 ML NEB.SOL* (0.083%) INH PRN (10:10)
[2017-11-23] MEDS ORDERED: Al Hydrox/Mg Hydrox/Simet LIQ* 30 ML UDC PO PRN (10:59)
--- NOTE | 2017-11-23 11:03 | PN ---
Subjective Date of Service: 11/23/17 Interval History: Patient was seen and examined at bedside. Reports intermittent abdominal pain, relieved with Morphine. Denies nausea or vomiting. Passing some flatus, feels hungry, but very nervous about resuming diet. Also notes some GERD symptoms last night, resolved this AM. Denies chest pain, palpitations or SOB. Family History: Unchanged from Admission Social History: Unchanged from Admission Past Medical History: Unchanged from Admission Objective Active Medications: Albuterol (Ventolin 2.5 Mg/3 Ml Neb.Nilda*) 2.5 mg INH Q4H PRN PRN Reason: SOB/WHEEZING Lactated Ringer's (Lactated Ringers 1000 Ml Bag*) 1,000 mls @ 75 mls/hr IV PER RATE COUNT INCLUDES [facility] Last Admin: 11/23/17 10:04 Dose: 75 mls/hr Methylprednisolone Sodium Succinate (Solu-Medrol 40 Mg) 20 mg IV Q8H COUNT INCLUDES THE [facility] Last Admin: 11/23/17 09:50 Dose: 20 mg Morphine Sulfate (Morphine Vial*) 4 mg IV Q4H PRN PRN Reason: PAIN - MODERATE TO SEVERE Last Admin: 11/23/17 09:51 Dose: 4 mg Ondansetron HCl (Zofran Inj*) 4 mg IV Q4H PRN PRN Reason: NAUSEA/VOMITING Last Admin: 11/21/17 17:44 Dose: 4 mg Oxycodone/Acetaminophen (Percocet 5/325 Tab*) 2 tab PO Q6H PRN PRN Reason: PAIN Vital Signs - 8 hr 11/23/17 11/23/17 11/23/17 02:57 03:31 05:36 Temperature 98.0 F Pulse Rate 65 Respiratory 16 14 16 Rate Blood Pressure 131/66 (mmHg) O2 Sat by Pulse 96 Oximetry 11/23/17 11/23/17 11/23/17 07:25 08:00 09:51 Temperature 98.3 F Pulse Rate 96 Respiratory 16 18 16 Rate Blood Pressure 149/85 (mmHg) O2 Sat by Pulse 97 Oximetry Oxygen Devices in Use Now: None Appearance: Appears comfortable, sitting up on her bed reading a book, in NAD. Eyes: No Scleral Icterus, PERRLA Ears/Nose/Mouth/Throat: Clear Oropharnyx, Mucous Membranes Moist Neck: NL Appearance and Movements; NL JVP, Trachea Midline Respiratory: Symmetrical Chest Expansion and Respiratory Effort, Clear to Auscultation Cardiovascular: NL Sounds; No Murmurs; No JVD, RRR Abdominal: No Hepatosplenomegaly, - - Abdomen soft and non-distended. Moderate epigastric and periumbilical tenderness noted. No guarding, rigidity or rebound tenderness. Bowel sounds active in all quadrants. No hernias or masses. Lower midline scar well healed. Lymphatic: No Cervical Adenopathy Extremities: No Edema Skin: No Rash or Ulcers Neurological: Alert and Oriented x 3 Lines/Tubes/Other Access: Clean, Dry and Intact Peripheral IV Result Diagrams: 11/22/17 05:29 11/22/17 05:29 Additional Lab and Data: . Microbiology and Other Data: Microbiology 11/22/17 00:50 Urine Culture - Final Urine Diagnostic Imaging: Patient Name: JASON PONCE Medical Record#: [id number] Ordering Physician: Leanne Grant NP Acct.#: [id number] : 1975 Age: 42 Sex: F Location: [address] [place] [address] - MEDICAL Exam Date: 11/22/17 07 ADM Status: ADM IN Order Information: ABDOMEN/KUB 1 VW Accession Number: [id number] CPT: 05672 Indication: Small bowel obstruction Comparison: November 21, 2017 CT Technique: Supine view of the abdomen. Report: Resolution of small bowel dilatation. Distal propagation of enteric contrast to the colon. Negative for colonic dilatation. Pelvic phleboliths. No suspicious calcifications or mass effect. IUD noted. Unremarkable soft tissue contours. IMPRESSION: Interval resolution of small bowel obstruction. Assess/Plan/Problems-Billing Assessment: Ms. Ponce is a 42 y.o female with a long standing hx of crohn's disease, bowel resection that presented to the emergency room with increased abd pain. CT of the ABD showed SBO. - Patient Problems (1) SBO (small bowel obstruction) Current Visit: Yes Status: Acute SNOMED Code(s): 638270698 Comment: - Improving clinically, passing flatus, very hesitatnt to resume diet. Will start on sips of clears for now. - LR at 75 cc/ hr - consult to GI appreiated. Medical management for the time being. - surgery consulted -- no need for emergent surgery at this time. (2) Crohn's disease Current Visit: Yes Status: Acute Comment: - will continue solumedrol 20 mg Q8H- patient has been 60 mg prednisone at home for 4 week. - Pain control with narcotics - Sips of clears trial - Dose of Humeria is due on saturday11/25/2017 (3) Arthritis Current Visit: No Status: Chronic Comment: - patient take oxymorphone at home for pain- 5mg TID- will hold for now as she is NPO - recieiving Morphine 2 mg Q 2 hours as neded for abd pain. - Added IV Diluadid as well as PO Percocet on prn basis - no c/o of arthritic pain today. (4) DVT prophylaxis Comment: - SCD's, ambulate (5) Full code status Comment: She is a full code Status and Disposition: In patient for medical management of Crohn's, anticipate discharge when medically stable.
[2017-11-23] MEDS: HYDROmorphone INJ* 1 MG/ML CARPUJECT SYRINGE IV SLOW PU PRN ×3 (15:07→21:12)
[2017-11-23] MEDS: Ondansetron INJ* 2 MG/ML VIAL IV PRN (18:32)
[2017-11-24] MEDS: methylPREDNISolone SOD 40 MG* 1 ML VIAL IV SCH ×3 (00:59→16:00)
[2017-11-24] MEDS: HYDROmorphone INJ* 1 MG/ML CARPUJECT SYRINGE IV SLOW PU PRN ×4 (07:54→21:16)
[2017-11-24] MEDS: oxyCODONE/Acetamin 5/325 MG* TAB PO PRN ×3 (09:41→21:52)
--- NOTE | 2017-11-24 16:16 | PN ---
Subjective Date of Service: 11/24/17 Interval History: Patient seen and examined earlier today. Reports intermittent mild to moderate abdominal pain, relived with narcotics. Passing flatus, no BM yet. Some nausea and GERD symptoms last evening, relived with Zofran and Maalox. Ambulatory and has no other complaints. Tolerating clear liquids well, still being cautious not to advance diet rapidly. Family History: Unchanged from Admission Social History: Unchanged from Admission Past Medical History: Unchanged from Admission Objective Active Medications: Adalimumab (Humira Pen (Nf)) 40 mg SUBCUT ONCE ONE Stop: 11/25/17 09:01 Al Hydrox/Mg Hydrox/Simethicone (Maalox Plus*) 30 ml PO Q6H PRN PRN Reason: HEARTBURN Last Admin: 11/23/17 18:22 Dose: 30 ml Albuterol (Ventolin 2.5 Mg/3 Ml Neb.Nilda*) 2.5 mg INH Q4H PRN PRN Reason: SOB/WHEEZING Hydromorphone HCl (Dilaudid Injic*) 0.5 mg IV SLOW PU Q4H PRN PRN Reason: PAIN - SEVERE Last Admin: 11/24/17 12:55 Dose: 0.5 mg Lactated Ringer's (Lactated Ringers 1000 Ml Bag*) 1,000 mls @ 75 mls/hr IV PER RATE [facility] Last Admin: 11/24/17 16:02 Dose: 75 mls/hr Methylprednisolone Sodium Succinate (Solu-Medrol 40 Mg) 20 mg IV Q8H [facility] Last Admin: 11/24/17 16:00 Dose: 20 mg Morphine Sulfate (Morphine Vial*) 4 mg IV Q4H PRN PRN Reason: PAIN - MODERATE TO SEVERE Last Admin: 11/23/17 09:51 Dose: 4 mg Ondansetron HCl (Zofran Inj*) 4 mg IV Q4H PRN PRN Reason: NAUSEA/VOMITING Last Admin: 11/23/17 18:32 Dose: 4 mg Oxycodone/Acetaminophen (Percocet 5/325 Tab*) 2 tab PO Q6H PRN PRN Reason: PAIN Last Admin: 11/24/17 15:58 Dose: 2 tab Vital Signs - 8 hr 11/24/17 11/24/17 11/24/17 09:19 09:41 12:55 Respiratory 18 18 18 Rate 11/24/17 15:58 Respiratory 18 Rate Oxygen Devices in Use Now: None Appearance: Comfortable in bed, reading a book, in NAD. Eyes: No Scleral Icterus, PERRLA Ears/Nose/Mouth/Throat: Clear Oropharnyx, Mucous Membranes Moist Neck: NL Appearance and Movements; NL JVP, Trachea Midline Respiratory: Symmetrical Chest Expansion and Respiratory Effort, Clear to Auscultation Cardiovascular: NL Sounds; No Murmurs; No JVD, RRR Abdominal: - - Abdomen soft and non-distended. Mild epigastric tenderness. No guarding, rigidity or rebound tenderness. Extremities: No Edema, No Clubbing, Cyanosis Skin: No Rash or Ulcers Neurological: Alert and Oriented x 3, NL Sensation, NL Muscle Strength and Tone Lines/Tubes/Other Access: Clean, Dry and Intact Peripheral IV Nutrition: Taking PO's Result Diagrams: 11/22/17 05:29 11/22/17 05:29 Additional Lab and Data: . Microbiology and Other Data: Diagnostic Imaging: . Assess/Plan/Problems-Billing Assessment: Ms. Azar is a 42 y.o female with a long standing hx of crohn's disease, bowel resection that presented to the emergency room with increased abd pain. CT of the ABD showed SBO, resolving and clinically improving with medical management. - Patient Problems (1) SBO (small bowel obstruction) Current Visit: Yes Status: Acute SNOMED Code(s): 224892747 Comment: - Improving clinically, continue passing flatus. Will advance diet to full liquids. - LR at 75 cc/ hr - consult to GI appreiated. Medical management appropriate for the time being. - surgery consulted -- no need for emergent surgery at this time. (2) Crohn's disease Current Visit: Yes Status: Acute Comment: - will continue solumedrol 20 mg Q8H- patient has been 60 mg prednisone at home for 4 week. - Pain control with narcotics - Sips of clears trial - Dose of Humeria is scheduled for saturday11/25/2017 (3) Arthritis Current Visit: No Status: Chronic Comment: - Stable, analgesics as ordered - recieiving Morphine 2 mg Q 2 hours as neded for abd pain. - Added IV Diluadid as well as PO Percocet on prn basis - no c/o of arthritic pain today. (4) DVT prophylaxis Comment: - SCD's, ambulate (5) Full code status Comment: She is a full code Status and Disposition: In patient for medical management of Crohn's, anticipate discharge when medically stable.
[2017-11-25] MEDS: methylPREDNISolone SOD 40 MG* 1 ML VIAL IV SCH ×3 (01:31→18:15)
[2017-11-25] MEDS: HYDROmorphone INJ* 2 MG/ML CARPUJECT SYRINGE IV SLOW PU PRN ×4 (01:43→18:23)
[2017-11-25] MEDS: oxyCODONE/Acetamin 5/325 MG* TAB PO PRN ×3 (07:38→21:52)
[2017-11-25] MEDS ORDERED: Adalimumab (NF) 40 MG/0.8 ML KIT SUBCUT ONE (09:00)
[2017-11-25] MEDS ORDERED: [UNRECOGNIZED DRUG - REMARK] SUBCUT ONE (11:00)
--- NOTE | 2017-11-25 15:39 | PN ---
Subjective Date of Service: 11/25/17 Interval History: Patient was seen and examined earlier today. Reports doing about the same. Pain hasn't changed, relived with Dilaudid. Still passing flatus, no BMs yet. Tolerating full liquids, still afraid to eat solid food. She told me Dr. Almonte had seen her yesterday, plan to see her again today to discuss if surgery is an option giving slow improvement. No further nausea or vomiting. Her BP readings has been consistent past 2 days 150s/90s, however denies any headaches or blurred vision. Family History: Unchanged from Admission Social History: Unchanged from Admission Past Medical History: Unchanged from Admission Objective Active Medications: Al Hydrox/Mg Hydrox/Simethicone (Maalox Plus*) 30 ml PO Q6H PRN PRN Reason: HEARTBURN Last Admin: 11/23/17 18:22 Dose: 30 ml Albuterol (Ventolin 2.5 Mg/3 Ml Neb.Nilda*) 2.5 mg INH Q4H PRN PRN Reason: SOB/WHEEZING Hydromorphone HCl (Dilaudid Inj*) 0.5 mg IV SLOW PU Q4H PRN PRN Reason: PAIN - SEVERE Last Admin: 11/25/17 12:09 Dose: 0.5 mg Methylprednisolone Sodium Succinate (Solu-Medrol 40 Mg) 20 mg IV Q8H EASTON Last Admin: 11/25/17 09:56 Dose: 20 mg Morphine Sulfate (Morphine Vial*) 4 mg IV Q4H PRN PRN Reason: PAIN - MODERATE TO SEVERE Last Admin: 11/23/17 09:51 Dose: 4 mg Ondansetron HCl (Zofran Inj*) 4 mg IV Q4H PRN PRN Reason: NAUSEA/VOMITING Last Admin: 11/23/17 18:32 Dose: 4 mg Oxycodone/Acetaminophen (Percocet 5/325 Tab*) 2 tab PO Q6H PRN PRN Reason: PAIN Last Admin: 11/25/17 14:09 Dose: 2 tab Vital Signs - 8 hr 11/25/17 11/25/17 11/25/17 07:38 07:39 07:59 Temperature 98.5 F Pulse Rate 80 Respiratory 16 16 16 Rate Blood Pressure 158/97 (mmHg) O2 Sat by Pulse 97 Oximetry 11/25/17 11/25/17 11/25/17 08:00 08:39 08:57 Temperature Pulse Rate 84 Respiratory 16 16 Rate Blood Pressure 154/93 (mmHg) O2 Sat by Pulse Oximetry 11/25/17 11/25/17 11/25/17 09:10 09:13 11:00 Temperature 98.6 F Pulse Rate 72 80 Respiratory 16 15 Rate Blood Pressure 152/94 165/99 (mmHg) O2 Sat by Pulse 97 Oximetry 11/25/17 11/25/17 11/25/17 11:36 12:09 13:00 Temperature Pulse Rate Respiratory 16 16 Rate Blood Pressure 158/94 (mmHg) O2 Sat by Pulse Oximetry 11/25/17 14:09 Temperature Pulse Rate Respiratory 16 Rate Blood Pressure (mmHg) O2 Sat by Pulse Oximetry Oxygen Devices in Use Now: None Appearance: Comfortable in bed, working on her laptop, in NAD. Eyes: No Scleral Icterus, PERRLA Ears/Nose/Mouth/Throat: Clear Oropharnyx, Mucous Membranes Moist Neck: NL Appearance and Movements; NL JVP, Trachea Midline Respiratory: Symmetrical Chest Expansion and Respiratory Effort, Clear to Auscultation Cardiovascular: NL Sounds; No Murmurs; No JVD, RRR Abdominal: - - Exam with a soft and non-distended abdomen. Minimal epigastric and periumbilical tenderness. No guarding, rigidity or rebound. Bowel sounds are active in all quadrants. Extremities: No Edema, No Clubbing, Cyanosis Skin: No Rash or Ulcers Neurological: Alert and Oriented x 3, NL Sensation, NL Muscle Strength and Tone Lines/Tubes/Other Access: Clean, Dry and Intact Peripheral IV - Good PO intake, will stop IVF Nutrition: Taking PO's Result Diagrams: 11/22/17 05:29 11/22/17 05:29 Additional Lab and Data: . Microbiology and Other Data: Diagnostic Imaging: . Assess/Plan/Problems-Billing Assessment: Ms. Azar is a 42 y.o female with a long standing hx of crohn's disease, bowel resection that presented to the emergency room with increased abd pain. CT of the ABD showed SBO, resolving and slowly improving with medical management. - Patient Problems (1) SBO (small bowel obstruction) Current Visit: Yes Status: Acute SNOMED Code(s): 519602228 Comment: - Improving clinically, continue passing flatus. Patient afraid to advance diet too fast. - LR at 75 cc/ hr; good PO intake, will d/c IVF - consult to GI appreiated. Will discuss with Dr. Carson if we need to continue her current regimen, or may need to discuss surgical options giving slow improvment. (2) Crohn's disease Current Visit: Yes Status: Acute Comment: - will continue solumedrol 20 mg Q8H- patient has been 60 mg prednisone at home for 4 week. - Pain control with narcotics - Full liquid diet - Dose of Humeria resumed saturday11/25/2017 (3) Arthritis Current Visit: No Status: Chronic Comment: - Stable, analgesics as ordered - recieiving Morphine 2 mg Q 2 hours as neded for abd pain. - Added IV Diluadid as well as PO Percocet on prn basis - no c/o of arthritic pain today. (4) DVT prophylaxis Comment: - SCD's, ambulate (5) Full code status Comment: She is a full code Status and Disposition: In patient for medical management of Crohn's, anticipate discharge when medically stable.
[2017-11-26] MEDS: methylPREDNISolone SOD 40 MG* 1 ML VIAL IV SCH (02:00)
[2017-11-26] MEDS: HYDROmorphone INJ* 2 MG/ML CARPUJECT SYRINGE IV SLOW PU PRN ×4 (03:42→20:04)
[2017-11-26] MEDS: oxyCODONE/Acetamin 5/325 MG* TAB PO PRN ×2 (07:43→15:20)
[2017-11-26] MEDS: Ondansetron 40 MG VIAL* 2 MG/ML 20 ML VIAL IV PRN (10:47)
[2017-11-26] MEDS ORDERED: methylPREDNISolone SOD 40 MG* 1 ML VIAL IV SCH (14:00)
--- NOTE | 2017-11-26 14:03 | PN ---
Subjective Date of Service: 11/26/17 Interval History: Patient seen and examined earlier today. Reports feeling better overall. Still with intermittent abdominal pain, but less intense and less frequent. Tolerating full liquids, hesitant to try low residue diet. Had a small BM today , continue to pass flatus. Denies N/V, fever or chills. Family History: Unchanged from Admission Social History: Unchanged from Admission Past Medical History: Unchanged from Admission Objective Active Medications: Al Hydrox/Mg Hydrox/Simethicone (Maalox Plus*) 30 ml PO Q6H PRN PRN Reason: HEARTBURN Last Admin: 11/23/17 18:22 Dose: 30 ml Albuterol (Ventolin 2.5 Mg/3 Ml Neb.Nilda*) 2.5 mg INH Q4H PRN PRN Reason: SOB/WHEEZING Hydromorphone HCl (Dilaudid Inj*) 0.5 mg IV SLOW PU Q4H PRN PRN Reason: PAIN - SEVERE Last Admin: 11/26/17 10:12 Dose: 0.5 mg Morphine Sulfate (Morphine Vial*) 4 mg IV Q4H PRN PRN Reason: PAIN - MODERATE TO SEVERE Last Admin: 11/23/17 09:51 Dose: 4 mg Ondansetron HCl (Zofran Inj*) 4 mg IV Q4H PRN PRN Reason: NAUSEA/VOMITING Last Admin: 11/26/17 10:47 Dose: 4 mg Oxycodone/Acetaminophen (Percocet 5/325 Tab*) 2 tab PO Q6H PRN PRN Reason: PAIN Last Admin: 11/26/17 07:43 Dose: 2 tab Prednisone (Deltasone Tab*) 50 mg PO DAILY EASTON Vital Signs - 8 hr 11/26/17 11/26/17 11/26/17 06:11 07:29 07:43 Temperature 99.2 F Pulse Rate 72 Respiratory 18 16 16 Rate Blood Pressure 145/88 (mmHg) O2 Sat by Pulse 98 Oximetry 11/26/17 11/26/17 11/26/17 08:00 10:12 11:35 Temperature Pulse Rate 77 Respiratory 16 16 16 Rate Blood Pressure 152/98 (mmHg) O2 Sat by Pulse 97 Oximetry Oxygen Devices in Use Now: None Appearance: Appears comfortable and in NAD. Eyes: No Scleral Icterus, PERRLA Ears/Nose/Mouth/Throat: Clear Oropharnyx, Mucous Membranes Moist Neck: Trachea Midline, No Thyroid Enlargement, Masses Respiratory: Symmetrical Chest Expansion and Respiratory Effort, Clear to Auscultation Cardiovascular: NL Sounds; No Murmurs; No JVD, RRR Abdominal: - - Abdominal exam unchanged from yesterday. Abdomen soft, non- distended, mildly tender at epigastric area. Bowel sounds normoactive. Extremities: No Edema, No Clubbing, Cyanosis Skin: No Rash or Ulcers Neurological: Alert and Oriented x 3, NL Sensation, NL Muscle Strength and Tone Nutrition: Taking PO's Result Diagrams: 11/22/17 05:29 11/22/17 05:29 Additional Lab and Data: . Microbiology and Other Data: Diagnostic Imaging: . Assess/Plan/Problems-Billing Assessment: Ms. Azar is a 42 y.o female with a long standing hx of crohn's disease, bowel resection that presented to the emergency room with increased abd pain. CT of the ABD showed SBO, resolving and slowly improving with medical management. - Patient Problems (1) SBO (small bowel obstruction) Current Visit: Yes Status: Acute SNOMED Code(s): 570771130 Comment: - Improving clinically, had a small BM, continues passing gas. Patient afraid to advance diet too fast, but will attempt low residue diet as tolerated. - LR at 75 cc/ hr; good PO intake, will d/c IVF - consult to GI appreiated. Soulmedrol changed to PO Prednisone, starting at 50mg dose. May have to taper down slowly. (2) Crohn's disease Current Visit: Yes Status: Acute Comment: - Prednisone PO starting today - Pain control with narcotics - Full liquid diet - Dose of Humeria resumed saturday11/25/2017 (3) Arthritis Current Visit: No Status: Chronic Comment: - Stable, analgesics as ordered - recieiving Morphine 2 mg Q 2 hours as neded for abd pain. - Added IV Diluadid as well as PO Percocet on prn basis - no c/o of arthritic pain today. (4) DVT prophylaxis Comment: - SCD's, ambulate (5) Full code status Comment: She is a full code Status and Disposition: In patient for medical management of Crohn's, anticipate discharge when medically stable.
[2017-11-26] MEDS: predniSONE TAB* 50 MG PO SCH (14:37)
[2017-11-27] MEDS: oxyCODONE/Acetamin 5/325 MG* TAB PO PRN ×3 (07:30→23:34)
[2017-11-27] MEDS: predniSONE TAB* 50 MG PO SCH (07:30)
[2017-11-27] MEDS: HYDROmorphone INJ* 2 MG/ML CARPUJECT SYRINGE IV SLOW PU PRN ×2 (09:43→14:14)
--- NOTE | 2017-11-27 13:46 | PN ---
Subjective Date of Service: 11/27/17 Interval History: Examined after breakfast. Patient reports decreased pain and nausea with oral intake, but states that she still has significant cramping abdominal pain with bloating on eating. Patient states she has been having night sweats and chills but states that this is not uncommon during episodes of increased disease activity for her. Patient denies diarrhea, blood in stool, CP, SOB, Dysuria, CONNELLY , changes in vision, palpitations, or other pain. Family History: Unchanged from Admission Social History: Unchanged from Admission Past Medical History: Unchanged from Admission Objective Active Medications: Al Hydrox/Mg Hydrox/Simethicone (Maalox Plus*) 30 ml PO Q6H PRN PRN Reason: HEARTBURN Last Admin: 11/23/17 18:22 Dose: 30 ml Hydromorphone HCl (Dilaudid Inj*) 0.5 mg IV SLOW PU Q4H PRN PRN Reason: PAIN - SEVERE Last Admin: 11/27/17 09:43 Dose: 0.5 mg Morphine Sulfate (Morphine Vial*) 4 mg IV Q4H PRN PRN Reason: PAIN - MODERATE TO SEVERE Last Admin: 11/23/17 09:51 Dose: 4 mg Ondansetron HCl (Zofran Inj*) 4 mg IV Q4H PRN PRN Reason: NAUSEA/VOMITING Last Admin: 11/26/17 10:47 Dose: 4 mg Oxycodone/Acetaminophen (Percocet 5/325 Tab*) 2 tab PO Q6H PRN PRN Reason: PAIN Last Admin: 11/27/17 07:30 Dose: 2 tab Prednisone (Deltasone Tab*) 50 mg PO DAILY EASTON Last Admin: 11/27/17 07:30 Dose: 50 mg Vital Signs - 8 hr 11/27/17 11/27/17 11/27/17 07:23 07:30 07:41 Temperature 98.2 F Pulse Rate 81 Respiratory 22 16 16 Rate Blood Pressure 126/91 (mmHg) O2 Sat by Pulse 99 Oximetry 11/27/17 11/27/17 11/27/17 09:10 09:43 10:54 Temperature Pulse Rate Respiratory 18 16 16 Rate Blood Pressure (mmHg) O2 Sat by Pulse Oximetry 11/27/17 10:55 Temperature 98.5 F Pulse Rate 86 Respiratory 22 Rate Blood Pressure 148/91 (mmHg) O2 Sat by Pulse 98 Oximetry Oxygen Devices in Use Now: None Appearance: Patient is a 42yo female who appears stated age and is sitting in the bed in NAD. Eyes: No Scleral Icterus, PERRLA Ears/Nose/Mouth/Throat: NL Teeth, Lips, Gums, Clear Oropharnyx, Mucous Membranes Moist Neck: NL Appearance and Movements; NL JVP, Trachea Midline Respiratory: Symmetrical Chest Expansion and Respiratory Effort, Clear to Auscultation Cardiovascular: NL Sounds; No Murmurs; No JVD, RRR, No Edema Abdominal: No Hepatosplenomegaly, - - Diffusely tender to palpation, worse in lower quadrants. Upper quadrants tympanic to percussion. Hypoactive bowel sounds throughout. Lymphatic: No Cervical Adenopathy Extremities: No Edema, No Clubbing, Cyanosis Skin: No Nodules or Sclerosis, - - Scar consistent with previous abdominal surgery on lower abdomen. Neurological: Alert and Oriented x 3, NL Sensation, NL Gait, NL Muscle Strength and Tone, - - CN II-XII intact. Result Diagrams: 11/22/17 05:29 11/22/17 05:29 Additional Lab and Data: . Microbiology and Other Data: Diagnostic Imaging: . Assess/Plan/Problems-Billing Assessment: Ms. Azar is a 42 y.o female with a long standing hx of crohn's disease, bowel resection that presented to the emergency room with increased abd pain. CT of the ABD showed SBO, resolving and slowly improving with medical management. - Patient Problems (1) SBO (small bowel obstruction) Current Visit: Yes Status: Acute Code(s): K56.609 - UNSP INTESTNL OBST, UNSP TO PARTIAL VERSUS COMPLETE OBST SNOMED Code(s): 663235904 Comment: Improving clinically, had a small BM, continues passing gas. Slow diet advancement, tolerating small amounts of low residue diet. consult to GI appreiated. Prednisone, starting at 50mg dose. Plan slow taper. (2) Arthritis Current Visit: No Status: Chronic Code(s): M19.90 - UNSPECIFIED OSTEOARTHRITIS, UNSPECIFIED SITE SNOMED Code(s): 8442312 Comment: Stable, analgesics as ordered. Possibly arthritis related to IBD. Will likely reduce as disease activity diminishes. (3) Crohn's disease Current Visit: Yes Status: Acute Code(s): K50.90 - CROHN'S DISEASE, UNSPECIFIED, WITHOUT COMPLICATIONS SNOMED Code(s): 78883523 Comment: Prednisone PO, plan for slow taper. Consideration should be given to steroid sparing agents if symptoms persist. Pain control with narcotics Low residue diet Dose of Humira resumed saturday11/25/2017 (4) Full code status Current Visit: Yes Status: Acute Code(s): Z78.9 - OTHER SPECIFIED HEALTH STATUS SNOMED Code(s): 914002991 Comment: She is a full code (5) DVT prophylaxis Current Visit: Yes Status: Acute Code(s): XME2579 - SNOMED Code(s): 693400725 Comment: SCD's, ambulate frequently Status and Disposition: In patient for medical management of Crohn's, anticipate discharge when medically stable.
[2017-11-27] MEDS: Ondansetron 40 MG VIAL* 2 MG/ML 20 ML VIAL IV PRN (14:17)
[2017-11-27] MEDS ORDERED: Morphine VIAL* 4 MG/ML VIAL (1 ml vial) IV PRN (18:04)
[2017-11-28 06:26] LABS: ABS Basophils 0 10^3/ul (0-0.2); ABS Eosinophils 0 10^3/ul (0-0.6); ABS Lymphocytes 3.4 10^3/ul (1.0-4.8); ABS Monocytes 0.4 10^3/ul (0-0.8); ABS Neutrophils 2.9 10^3/ul (1.5-7.7); ABS Nucleated RBC 0 10^3/ul; Eosinophil % 0.6 % (0-6); Hematocrit 41 % (35-47); Hemoglobin 14.2 g/dl (12.0-16.0); Lymphocyte % 50.2 % (25-47); Mean Corpuscular HGB Conc 34 g/dl (31-36); Mean Corpuscular Hemoglobin 35 pg (27-31); Mean Corpuscular Volume 102 fL (80-97); Mean Platelet Volume 8.7 um3 (7.4-10.4); Nucleated Red Blood Cells % 0.1; Platelet Count 153 10^3/ul (150-450); Red Blood Count 4.03 10^6/ul (4.0-5.4); Red Cell Distribution Width 13 % (10.5-15); White Blood Count 6.7 10^3/ul (3.5-10.8)
[2017-11-28 06:50] LABS: EGFR Non-African American 70.7 (>60)
[2017-11-28] MEDS: oxyCODONE/Acetamin 5/325 MG* TAB PO PRN ×2 (07:30→13:39)
[2017-11-28] MEDS: predniSONE TAB* 50 MG PO SCH (07:30)
[2017-11-28 11:21] VITALS: BP 142/88
--- NOTE | 2017-11-30 05:09 | DS ---
CC: Dr. Waite * DISCHARGE SUMMARY: DATE OF ADMISSION: 11/21/17 DATE OF DISCHARGE: 11/28/17 PRIMARY CARE PROVIDER: Dr. Waite. MY ATTENDING WHILE IN THE HOSPITAL: Alley Pugh MD * (DICTATED BY JORGE JEFFERSON) PRIMARY DISCHARGE DIAGNOSES: 1. Crohn disease flare. 2. Partial small bowel obstruction. 3. Chronic abdominal pain. SECONDARY DISCHARGE DIAGNOSIS: Arthritis. STUDIES DONE WHILE IN THE HOSPITAL: Abdomen and pelvis CT from 11/21/17 read as , there is a moderate grade distal small bowel obstruction believed to be at the distal ileum, probably at the site of prior resection. There is a small amount of free fluid. There is no evidence of localized fluid collection to suggest abscess formation. Abdomen x-ray from 11/22/17 read as interval resolution of small bowel obstruction. MEDICATIONS AT DISCHARGE: 1. Ascorbic acid 1000 mg p.o. daily. 2. Probiotic 1 cap p.o. daily. 3. Vitamin B 1 tab p.o. daily. 4. Cholecalciferol 1000 units p.o. daily. 5. Calcium carbonate 1200 mg p.o. daily. 6. Hyoscyamine 0.375 mg p.o. daily as needed. 7. Prednisone 50 mg p.o. daily with taper. 8. Humira 40 mg subcutaneous biweekly. 9. Opana immediate release 5 mg p.o. q.6 hours as needed. 10. Percocet 1 to 2 tabs p.o. q.6 hours as needed x30. HOSPITAL COURSE: This is a brief summary of the patient's presentation. For more details, please see the history and physical from Leanne Grant NP, on 11/21/17. In brief, the patient is a 42-year-old female with past medical history significant for the above, who presented to the emergency room for 2 days of severely worsened abdominal pain as well as nausea. The patient has been having a Crohn's flare-up for 3 months, seen at her interpreter for the deaf as outpatient, started on prednisone. She had some diarrhea, no other abnormalities. The patient was admitted to the hospital, she was made n.p.o., seen in consultation by Dr. Bulmaro Stone of General Surgery, who did not recommend surgery to relieve the bowel obstruction. The patient was seen in consultation as well by Dr. Ken Almonte of Gastroenterology. The patient had a repeat abdominal x-ray as above, which showed resolution of her small bowel obstruction. The patient was started on Solu-Medrol at 60 mg daily, which was then tapered to 50 mg of prednisone daily with the plan of a very slow taper to help musa her Crohn's flare as well as continuation of her therapy with Humira. The patient had significant pain, requiring IV pain medication. While in the hospital, the patient had her diet slowly advanced, as when she ate, this provoked severe abdominal pain. The patient had a dose of Humira while in the hospital on 11/25/17. The patient on the day of discharge was able to be maintained on Percocet as above. The plan was the patient to resume her home dose of Opana and use Percocet for breakthrough pain and follow up with the pain clinic and her interpreter for the deaf as well as her primary care provider. PHYSICAL EXAMINATION ON THE DAY OF DISCHARGE: General: The patient is a 42- year- old female, who appears stated age, and sitting comfortably in bed, in no acute distress. Vitals signs at the time of discharge: Temperature 98.7, pulse rate 90, respiratory rate 16, oxygen saturation 97% on room air, blood pressure 142/89. HEENT: Head normocephalic, atraumatic. Sclerae anicteric. No conjunctival injection. Nasal mucosa moist. Oral mucosa moist. No pharyngeal erythema, discharge or exudate. Neck: Supple, nontender. No lymphadenopathy. No carotid bruit auscultated. No JVD. Cardiac: Regular rate and rhythm. No clicks, murmurs, gallops, or rubs. Pulses 2+ in bilateral dorsalis pedis, posterior tibial, and radial areas. No calf tenderness noted. No bilateral lower extremity edema. Respiratory: Clear to auscultation bilaterally. No wheezes, rales, or rhonchi. Good air exchange bilaterally. Abdomen: Diffusely tender to palpation, improved from previous exam. No hepatosplenomegaly. No abdominal bruits auscultated. Bowel sounds present and normoactive in all 4 quadrants. Scars consistent with previous ileocecal resection. Genitourinary: No suprapubic or CVA tenderness. Neuro: Cranial nerves II through XII are intact. No focal deficits. Psychiatric: Pleasant and cooperative. LABORATORY DATA ON THE DAY OF DISCHARGE: White blood cell count 6.7, hemoglobin 14.2, platelet count 153,000. Sodium 142, potassium 3.7, chloride 102, carbon dioxide 33, anion gap 7, BUN 13, creatinine 0.87, glucose 85, calcium 9.3. DISCHARGE PLAN: The patient will be discharged to home. The patient will have a very slow taper of her prednisone, going down to 5 mg every 7 days. This taper can be decelerated or accelerated by her primary care provider or her outpatient interpreter for the deaf. The patient will have pain control with Opana and Percocet as above. The patient to follow up with pain clinic as scheduled to manage her chronic abdominal and joint pain. The patient should follow up with the interpreter for the deaf soon after the discharge. The patient has already called for an appointment. The patient should follow up with her primary care provider within 1 week for general medical management. The patient should return to the hospital for severely increased abdominal pain, shortness of breath, or chest pain. The patient should continue with Humira and be considered for additional steroid sparing therapy in addition to her Humira, if her Crohn's flare is unable to be controlled after the steroids have begun to be tapered. The patient should engage in activity as tolerated and have a low residue diet. TIME SPENT: Approximately 60 minutes were spent on this discharge, 30 of which were spent [id number] with the patient obtaining history and physical and discussing treatment plan. JORGE JEFFERSON [id number]/[facility] #: [id number] ALE
--- NOTE | 2017-11-30 12:04 | CONS ---
CC: Gastroenterology CONSULTATION REPORT: DATE OF CONSULT: 11/22/17 REQUESTING PHYSICIAN: Leanne Grant NP. NARRATIVE: Mrs. Azar is a 42-year-old female with a history of Crohn's disease who is a patient o f Dr. eHrnadez. She has been seeing our nurse practitioner for worsening symptoms, was started on oral steroids in addition to Humira. She has had two doses of Humira; however, her symptoms have been ge tting worse. She describes severe lower abdominal pain, some nausea, no vomiting. Her abdomen is sl ightly distended. No bowel movements. Slight amount of passage of gas. The patient presented to [facility] emergency room. She had a CT, which showed possible small bowel obstruction and was admitted to [facility]. Currently, she is feeling about the same as yesterday and no improvement in her symptoms . PAST MEDICAL HISTORY: Significant for Crohn and arthritis. PAST SURGICAL HISTORY: Includes small bowel obstruction. MEDICATIONS AT HOME: Include: 1. Oxymorphone. 2. Prednisone 50 mg a day. 3. Humira every 2 weeks. 4. Levbid. 5. Probiotics. 6. Vitamin D. 7. Vitamin B. ALLERGIES: To AMOXICILLIN, DIFLUCAN, and LEVOFLOXACIN. FAMILY HISTORY: Uterine cancer and lung cancer. SOCIAL HISTORY: Denies any tobacco, IV drugs use or alcohol use. REVIEW OF SYSTEMS: Twelve systems were reviewed and other than that mentioned in the HPI were unrema rkable. PHYSICAL EXAM: Temperature is 99.1, blood pressure is 124/87, pulse is 91, O2 sat is 95%. General: Well-appearing young female, in no apparent distress. Alert, oriented, pleasant, and fluent. HEENT : Mucous membranes are and head is normocephalic and atraumatic. Heart: Regular rate and rh ythm. Lungs: Clear to auscultation. Abdomen: Positive bowel sounds, soft, slight tenderness, no rebound, no guarding. Bowel sounds are hypoactive. She has moderate tenderness throughout, but agai n no rebound and no guarding. A few high pitched bowel sounds. Skin is warm and dry. Musculoskeleta l: No CVA or spinal tenderness to palpation. LABORATORY DATA: Labs of note, white count is 9.5, hemoglobin is 13.6, platelets of 187, INR 0.88. Sodium is 138. CT abdomen and pelvis reveals moderate grade distal small bowel obstruction believed to be at the di stal ileum, probably at the site of prior resection. ASSESSMENT AND PLAN: A pleasant female with possible small bowel obstruction related to Crohn. She had been on oral steroids and Humira. I would recommend Solu-Medrol at this point. We should contin ue with the Humira, she is due in a few days. Surgery has already seen her. Hopefully, we can avoid surgery. If the Solu- Medrol does not work over the next few days, we may need to consider switchin g to something such as Entyvio as the patient is already on a tumor necrosis factor antibody. I doub t cyclosporin would be of benefit to her. These were all discussed with her. She is in agreement. She will be n.p.o., fluids, IV Solu- Medrol, pain control, and very close monitoring. [id number]/[facility] #: [id number]
== END 2017-11-28 15:00 | disposition home or self-care (01) | DRG 245 ==
LOC: ED 10:07 → MED 15:41
PROVIDERS: ADMIT Internal Medicine; ATTEND Internal Medicine
DX: K50.012 Crohn's disease of small intestine with intestinal obstruction (principal); J30.2 Other seasonal allergic rhinitis; K21.9 Gastro-esophageal reflux disease without esophagitis; M19.90 Unspecified osteoarthritis, unspecified site; F32.9 Major depressive disorder, single episode, unspecified; E87.6 Hypokalemia; R74.8 Abnormal levels of other serum enzymes; G89.29 Other chronic pain; F41.9 Anxiety disorder, unspecified; Z79.1 Long term (current) use of non-steroidal anti-inflammatories (NSAID); Z91.048 Other nonmedicinal substance allergy status; Z80.8 Family history of malignant neoplasm of other organs or systems; Z87.891 Personal history of nicotine dependence; Z72.89 Other problems related to lifestyle; Z80.1 Family history of malignant neoplasm of trachea, bronchus and lung; Z90.89 Acquired absence of other organs; Z88.1 Allergy status to other antibiotic agents; Z79.52 Long term (current) use of systemic steroids; Z88.8 Allergy status to other drugs, medicaments and biological substances; Z80.49 Family history of malignant neoplasm of other genital organs
CPT/HCPCS: 36415; 74018; 74177; 80048; 80053; 81003; 81015; 83605; 83690; 85025; 85610; 86140; 87086; 99284; A9270-GY; J1170; J1200; J2270; J2405; J2920; J3480; J7512; Q9967

== ENCOUNTER 2017-12-31 12:07 | Inpatient (IN) | payer OTHER ==
[2017-12-31] MEDS ORDERED: Metoclopramide IV* 5 MG/ML 2 ML VIAL IV ONE (12:36)
[2017-12-31] MEDS ORDERED: NS 0.9% 1000 ML* 1,000 ML IV ONE ×2 (12:36→15:02)
[2017-12-31 13:01] LABS: ABS Basophils 0.1 10^3/ul (0-0.2); ABS Eosinophils 0 10^3/ul (0-0.6); ABS Lymphocytes 1.5 10^3/ul (1.0-4.8); ABS Monocytes 1.1 10^3/ul (0-0.8); ABS Neutrophils 9.4 10^3/ul (1.5-7.7); ABS Nucleated RBC 0 10^3/ul; Eosinophil % 0.1 % (0-6); Hematocrit 40 % (35-47); Hemoglobin 13.5 g/dl (12.0-16.0); Lymphocyte % 12.3 % (25-47); Mean Corpuscular HGB Conc 34 g/dl (31-36); Mean Corpuscular Hemoglobin 34 pg (27-31); Mean Corpuscular Volume 102 fL (80-97); Mean Platelet Volume 6.5 um3 (7.4-10.4); Nucleated Red Blood Cells % 0; Platelet Count 170 10^3/ul (150-450); Red Blood Count 3.93 10^6/ul (4.00-5.40); Red Cell Distribution Width 14 % (10.5-15); White Blood Count 12.1 10^3/ul (3.5-10.8)
[2017-12-31 13:15] LABS: EGFR Non-African American 71.7 (>60)
[2017-12-31 14:03] LABS: Urine Appearance Cloudy; Urine Blood Negative (Negative); Urine Color Yellow; Urine Ketones Trace (Negative); Urine Protein Negative (Negative); Urine Specific Gravity 1.003 (1.010-1.030); Urine Urobilinogen Negative (Negative)
[2017-12-31] MEDS: KCL 10 MEQ/50 ML IVPREMIX* 10 MEQ/50 ML BAG IV SCH ×2 (14:23→17:21)
[2017-12-31] MEDS ORDERED: Ondansetron INJ* 2 MG/ML VIAL IV SCH (16:00)
[2017-12-31] MEDS ORDERED: Magnesium Sulfate 2 GM IV* 2 GM/50 ML BAG IVPB ONE (16:08)
[2017-12-31] MEDS ORDERED: Ondansetron INJ* 2 MG/ML VIAL IV PRN (16:08)
--- NOTE | 2017-12-31 16:48 | RAD ---
INDICATION: Abdominal pain. COMPARISON: Comparison is made with a prior pelvic ultrasound from November 16, 2016. TECHNIQUE: Multiple real-time transvaginal images of the pelvis were obtained. FINDINGS: The uterus is normal in size, shape and echogenicity. The uterus measured 7.5 x 3.4 x 4.6 cm. The endometrial echo measured 0.9 cm in thickness. There is an IUD which appears to be in normal position. Note is made of a nabothian cyst measuring 0.8 cm in size. The right ovary measured 4.7 x 3.1 x 2.6 cm. The left ovary measured 5.6 x 2.7 x 2.6 cm. There is vascular flow within both ovaries. There are multiple bilateral slightly prominent follicular cysts. These measure 2.5 x 1.4 x 2.1, 2.1 x 1.5 x 2.0 and 2.1 x 1.1 x 1.9 cm in the right ovary. These measure 2.3 x 1.8 x 2.3 and 2.0 x 2.0 x 1.7 cm and the left ovary. There is a small amount of free intraperitoneal fluid in the cul-de-sac. IMPRESSION: 1. ENLARGED OVARIES WITH PROMINENT BILATERAL FOLLICULAR CYSTS. 2. IUD IN NORMAL POSITION.
[2017-12-31] MEDS: oxyCODONE TAB* 5 MG TAB PO PRN ×2 (17:35→21:38)
[2017-12-31] MEDS: Ondansetron 40 MG VIAL* 2 MG/ML 20 ML VIAL IV PRN (21:39)
[2017-12-31] MEDS: NS 0.9% 1000 ML* 1,000 ML IV SCH (21:41)
--- NOTE | 2017-12-31 21:43 | HP ---
CC: Dr. Waite * [facility] MEDICINE HISTORY AND PHYSICAL: DATE OF ADMISSION: 12/31/17 PRIMARY CARE PHYSICIAN: Dr. Waite. ATTENDING PHYSICIAN: Lakesha Urban MD * (dictation provided by Dilcia Hernadez NP ) CHIEF COMPLAINT: Abdominal pain with fever. HISTORY OF PRESENT ILLNESS: Ms. Azar is a 42-year-old female with a past medical history of Crohn's disease with recent discharge from our hospital on after being treated for Crohn's flare and partial small bowel obstruction. The patient states that she has been having a lot of trouble with what she considers to be a Crohn's flare for the past few months. Her primary complaint is of abdominal pain on the right upper to mid abdomen at the site of her, what she describes as the site of her ileal resection. She has been following closely with the gastroenterology team including Dr. Almonte. She continues on prednisone 35 mg per taper and Humira. She was ordered to have an MRI of the abdomen today and followup of this ongoing complaint. The patient states that she has had "a lot of trouble" tolerating gadolinium with MRIs or other contrast in the past. She was able to make it through the examination and went home. However, on returning home, she felt very cold and then hot. She was sweating, she felt palpitations. She called the gastroenterology office and they recommended that she come to the emergency room for evaluation. She denies any other complaints that are acute. She has had no headache. No difficulty swallowing. No chest pain. No shortness of breath. She has had some intermittent nausea, abdominal pain consistent with her history of Crohn' s. Her only other report is what she describes as more pain related to her Crohn's during the time of her menses. She states that she has in the past missed periods. This month, her period was 2 weeks late. It is not any heavier than normal, but again, this menstruation was associated with an increased abdominal pain. In the emergency room, Ms. Azar had labs, which showed no significant abnormalities. Her white blood cell count is 12.1. Her BUN and creatinine are normal. She has a slightly low potassium at 3.0. Her CRP is 11.89. Urine shows no evidence of infection. The MRI abdomen, which was done earlier prior to this admission is read as follows: "Post ileal resection with unremarkable ileocolonic anastomosis, no inflammatory change of the alimentary tract evident , no gross distortion in the distribution of bowel loops, or acute angulation to indicate peritoneal adhesions, negative for ascites." Consider pelvic ultrasound. Assessment: Bilateral ovarian cyst, anteverted uterus with IUD in place, nabothian cyst of the cervix, bilateral enlarged ovaries on the right, there is a 3.5 cm maximum dimension lesion to represent 2 adjacent simple cysts or solitary cysts with a thin internal septum. On the left, there are a few dominant cysts measuring up to 2.2 cm in maximum diameter. In the review of the previous abdominal pelvis CTs on 11/21/17, no cysts were noted. Prior abdomen and pelvis CT from 11/16/16 notes a 2.5 cm left ovarian cyst only. However, the patient did have a fever to 101 and is tachycardic with a heart rate running in the one-teens. PAST MEDICAL HISTORY: 1. Ileal resection. 2. Crohn's disease. 3. Arthritis. MEDICATIONS: Outpatient are: 1. Humira 40 mg subcutaneously q.7 days. 2. Oxymorphone 5 mg p.o. q.6 hours p.r.n. pain for chronic knee pain. 3. Prednisone 35 mg p.o. daily. ALLERGIES: ALOE, FLUCONAZOLE, AMOXICILLIN, CINNAMON, LEVOFLOXACIN. FAMILY HISTORY: The patient states her parents are alive and well. She had a grandmother with uterine cancer and another grandmother with lung cancer. SOCIAL HISTORY: No report of tobacco or drug use. The patient drinks alcohol very occasionally. She states that her friend, Ortiz, would be the healthcare proxy. REVIEW OF SYSTEMS: A 14-point review of systems was completed with Ms. Azar. All those not mentioned above were negative. PHYSICAL EXAMINATION GENERAL: Ms. Azar is lying in the bed with a friend at the bedside. She is in no acute distress. VITAL SIGNS: Temperature 101, pulse rate 110, respiratory rate 14, O2 saturation 97% on room air, blood pressure 171/94. LUNGS: Clear to auscultation bilaterally with no accessory muscle use and good aeration. HEART: S1, S2, no murmur, rub, or gallop and regular. ABDOMEN: Soft. There is tenderness in the right upper to mid quadrant. There is no rebound or guarding. Bowel sounds are positive. EXTREMITIES: No cyanosis or edema. NEURO: She is alert. She is oriented x3. She moves all extremities equally. There is no facial asymmetry or focal weakness. Extraocular movements are intact. SKIN: Intact. LABORATORY DATA/DIAGNOSTIC STUDIES: WBC 12.1, hemoglobin 13.5, hematocrit 40, platelet count 170. Sodium 137, potassium 3.0, chloride 100, serum bicarbonate 27, BUN 12, creatinine 0.86, glucose 65. CRP 11.89. Urine shows no evidence of infection. Abdomen MRI is as per above. ASSESSMENT: Ms. Azar is a 42-year-old female who presents to the hospital today for an abdomen MRI for assessment of continued pain thought to be secondary to Crohn's disease who now has a fever and tachycardia with persistent nausea and abdominal pain. Our plans are for observation in the hospital for the followin. Fever and tachycardia: The patient meets sepsis criteria via systemic inflammatory response syndrome criteria only. In review of the adverse reactions to gadolinium for the MRI, fever and tachycardia are listed, although they are rare. At this point, the patient showed no evidence of acute infection. Plans will be to monitor closely for development of other signs or symptoms. No antibiotics are indicated at this point. The patient will continue with an additional liter of IV fluids in the emergency room and then have normal saline at 125 mL/hour. 2. Abdominal pain. The patient has significant abdominal pain without significant report of diarrhea, although certainly diarrhea is a feature. She has ovarian cyst noted on the MRI abdomen with recommendations for an ultrasound for Radiology, which I will follow up for now given the patient's presentation with abdominal pain. 3. Hypokalemia. Plan to repeat supplement and recheck in the a.m. 4. Chronic pain. The patient will have oxycodone and morphine available for pain. 5. Crohn's disease. The patient will be seen in consultation by Dr. Almonte. At this time, there is no evidence of clear Crohn's exacerbation. 6. DVT prophylaxis. Early mobility. 7. Disposition to the medical floor for observation. TIME SPENT: Approximately 60 minutes were spent on the admission of this patient, more than half the time spent with the patient at the bedside reviewing the events leading up to this hospitalization, performing the physical examination, and reviewing the plan of care. DILCIA HERNADEZ, CURING SUPERVISOR [id number]/[facility] #: [id number] ALE
[2017-12-31] MEDS: Acetaminophen TAB* 325 MG PO PRN (23:46)
[2018-01-01] MEDS ORDERED: Cefepime 2 GM in Dextrose(*) 2 GM/50 ML BAG IV SCH
[2018-01-01] MEDS ORDERED: metroNIDAZOLE IV 500 MG/100ML* 500 MG/100 ML BAG IVPB SCH (00:30)
[2018-01-01] MEDS: Morphine INJ* 10 MG/ML 1 ML CARPUJECT IV PRN (02:05)
[2018-01-01] MEDS: Ondansetron 40 MG VIAL* 2 MG/ML 20 ML VIAL IV PRN ×2 (02:05→20:06)
[2018-01-01] MEDS: NS 0.9% 1000 ML* 1,000 ML IV SCH ×2 (05:55→18:36)
[2018-01-01] MEDS: oxyCODONE TAB* 5 MG TAB PO PRN ×4 (05:56→18:36)
[2018-01-01 06:08] LABS: ABS Basophils 0.1 10^3/ul (0-0.2); ABS Eosinophils 0 10^3/ul (0-0.6); ABS Lymphocytes 1.4 10^3/ul (1.0-4.8); ABS Monocytes 0.9 10^3/ul (0-0.8); ABS Neutrophils 7.7 10^3/ul (1.5-7.7); ABS Nucleated RBC 0 10^3/ul; Eosinophil % 0 % (0-6); Hematocrit 42 % (35-47); Hemoglobin 14.3 g/dl (12.0-16.0); Lymphocyte % 13.7 % (25-47); Mean Corpuscular HGB Conc 34 g/dl (31-36); Mean Corpuscular Hemoglobin 35 pg (27-31); Mean Corpuscular Volume 102 fL (80-97); Mean Platelet Volume 6.6 um3 (7.4-10.4); Nucleated Red Blood Cells % 0; Platelet Count 179 10^3/ul (150-450); Red Blood Count 4.08 10^6/ul (4.00-5.40); Red Cell Distribution Width 14 % (10.5-15)
[2018-01-01 06:21] LABS: EGFR Non-African American 74.7 (>60)
[2018-01-01] MEDS: predniSONE TAB* 10 MG PO SCH (07:51)
[2018-01-01] MEDS: Acetaminophen TAB* 325 MG PO PRN (07:51)
--- NOTE | 2018-01-01 10:45 | PN ---
Subjective Date of Service: 01/01/18 Interval History: Patient seen and examined. Fevers overnight and sweats, increased pain and diarrhea. T-max 102.6. Denies vomiting, some nausea today, with poor appetite. Objective Active Medications: Acetaminophen (Tylenol Tab*) 650 mg PO Q6H PRN PRN Reason: FEVER/PAIN Last Admin: 01/01/18 07:51 Dose: 650 mg Sodium Chloride (Ns 0.9% 1000 Ml*) 1,000 mls @ 125 mls/hr IV PER RATE [facility] Last Admin: 01/01/18 05:55 Dose: 125 mls/hr Piperacillin Sod/Tazobactam (Sod 3.375 gm/ Sodium Chloride) 100 mls @ 200 mls/ hr IVPB ONCE ONE Stop: 01/01/18 11:06 Morphine Sulfate (Morphine Inj (Syringe)*) 5 mg IV Q4H PRN PRN Reason: PAIN Last Admin: 01/01/18 02:05 Dose: 5 mg Ondansetron HCl (Zofran 40 Mg Vial*) 4 mg IV Q4H PRN PRN Reason: NAUSEA Last Admin: 01/01/18 02:05 Dose: 4 mg Oxycodone HCl (Roxycodone Tab*) 10 mg PO Q4H PRN PRN Reason: PAIN Last Admin: 01/01/18 10:33 Dose: 10 mg Pharmacy Consult (Zosyn Per Pharmacy*) 1 note FOLLOW UP .ZOSYN PER PHARMACY [facility] Prednisone (Deltasone Tab*) 35 mg PO DAILY [facility] Last Admin: 01/01/18 07:51 Dose: 35 mg Vital Signs - 8 hr 01/01/18 01/01/18 01/01/18 03:26 03:53 05:56 Temperature 99.5 F Pulse Rate 90 Respiratory 17 16 18 Rate Blood Pressure 120/60 (mmHg) O2 Sat by Pulse 99 Oximetry 01/01/18 01/01/18 01/01/18 07:24 07:55 09:30 Temperature 101.8 F 99.0 F Pulse Rate 100 Respiratory 16 16 Rate Blood Pressure 122/72 (mmHg) O2 Sat by Pulse 98 Oximetry 01/01/18 10:33 Temperature Pulse Rate Respiratory 16 Rate Blood Pressure (mmHg) O2 Sat by Pulse Oximetry Oxygen Devices in Use Now: None Appearance: moderate distress, pale, ill-appearing Eyes: No Scleral Icterus Ears/Nose/Mouth/Throat: - - dry oral mucosa Neck: Trachea Midline Respiratory: Symmetrical Chest Expansion and Respiratory Effort, Clear to Auscultation Cardiovascular: NL Sounds; No Murmurs; No JVD, RRR, No Edema Abdominal: NL Sounds; No Tenderness; No Distention Extremities: No Edema, No Clubbing, Cyanosis Skin: No Rash or Ulcers Neurological: Alert and Oriented x 3, NL Gait, - - general weakness, diaphoretic Nutrition: Taking PO's Result Diagrams: 01/01/18 05:50 01/01/18 05:50 Microbiology and Other Data: Microbiology 12/31/17 18:00 Stool Gross Appearance - Final Stool C. difficile DNA Amplification - Final 027 Presumptive NEGATIVE Toxigenic C.diff NEGATIVE Stool Lactoferrin - Final Stool Occult Blood (MAGALI) - Final 12/31/17 18:09 Stool Gross Appearance - Final Stool Diagnostic Imaging: Patient Name: JASON PONCE Medical Record#: [id number] Ordering Physician: Ken Almonte MD Acct.#: [id number] : 1975 Age: 42 Sex: F Location: IMAGING Exam Date: 12/31/17 ADM Status: REG REF Order Information: MRI Enterography Accession Number: [id number] CPT: 97161 Indication: Crohn's disease. Previous ileal bowel resection. Assess for strictures and inflammation. Comparison: November 22, 2017 abdomen radiograph and November 21, 2017 CT. Technique: [place] 1.5 Mandy TD332M with GEM suite. MRI enterography protocol. Volumen oral contrast. 1 mg glucagon administered IM. Contrast-enhanced MRI of the abdomen and pelvis was performed with 10 mL ProHance IV contrast. Multiphasic postcontrast series. Report: Negative for pleural effusions at the inferior thorax. No abnormality of the liver, gallbladder, or pancreas. Negative for biliary dilatation. Unremarkable spleen. Upper normal diameter of the small bowel loops. No compelling mural thickening or focal small bowel lesions or perienteric inflammatory change. Unremarkable RIGHT lower quadrant ileocolonic anastomosis. No abnormality of the unopacified colon through the splenic flexure. Assessment of the colon distal to the splenic flexure is limited due to absence of opacification of the lumen. Negative for ascites. Negative for hernias. Unremarkable adrenal glands and kidneys. Negative for ureteral dilatation. Heterogeneous signal at the distended urinary bladder due to motion artifact including from ureteral jets. Anteverted uterus with IUD in place. Nabothian cysts at the cervix. Bilateral enlarged ovaries. On the RIGHT there is a 3.5 cm maximum dimension lesion to represent 2 adjacent simple cyst or a solitary cyst with a thin internal septation. On the LEFT there are a few dominant cyst measuring up to 2.2 cm maximum diameter. No lymphadenopathy visualized. Normal diameter abdominal aorta and iliac arteries. Physiologic distention of the IVC. Negative for suspicious osseous lesions. No sacroiliitis evident. IMPRESSION: 1. Post ileal resection with unremarkable ileocolonic anastomosis. No inflammatory change of the alimentary tract evident. No gross distortion in the distribution of bowel loops or acute angulation to indicate peritoneal adhesions. Negative for ascites. 2. Consider pelvic ultrasound assessment bilateral ovarian cysts. Patient Name: JASON PONCE Medical Record#: [id number] Ordering Physician: Dilcia Hernadez AUTOMOTIVE DESIGN DRAFTER Acct.#: [id number] : 1975 Age: 42 Sex: F Location: [address] [place] [address] MEDICAL Exam Date: 12/31/17 1506 ADM Status: ADM Michaelle Order Information: US TRANSVAGINAL Accession Number: [id number] CPT: 48766 INDICATION: Abdominal pain. COMPARISON: Comparison is made with a prior pelvic ultrasound from November 16, 2016. TECHNIQUE: Multiple real-time transvaginal images of the pelvis were obtained. FINDINGS: The uterus is normal in size, shape and echogenicity. The uterus measured 7.5 x 3.4 x 4.6 cm. The endometrial echo measured 0.9 cm in thickness. There is an IUD which appears to be in normal position. Note is made of a nabothian cyst measuring 0.8 cm in size. The right ovary measured 4.7 x 3.1 x 2.6 cm. The left ovary measured 5.6 x 2.7 x 2.6 cm. There is vascular flow within both ovaries. There are multiple bilateral slightly prominent follicular cysts. These measure 2.5 x 1.4 x 2.1, 2.1 x 1.5 x 2.0 and 2.1 x 1.1 x 1.9 cm in the right ovary. These measure 2.3 x 1.8 x 2.3 and 2.0 x 2.0 x 1.7 cm and the left ovary. There is a small amount of free intraperitoneal fluid in the cul-de-sac. IMPRESSION: 1. ENLARGED OVARIES WITH PROMINENT BILATERAL FOLLICULAR CYSTS. 2. IUD IN NORMAL POSITION. Assess/Plan/Problems-Billing Assessment: This is a 42 year old female with history of Crohn's and resection that presented to ER after MRI with contrast with fever, weakness, increased abdominal pain and now diarrhea overnight. - Patient Problems (1) Abdominal pain Code(s): R10.9 - UNSPECIFIED ABDOMINAL PAIN SNOMED Code(s): 45265857 Comment: - MRI and TV US as above - Per micro, salmonella in stool - Pain control, IVF, soft diet as tolerated (2) Crohn's disease Code(s): K50.90 - CROHN'S DISEASE, UNSPECIFIED, WITHOUT COMPLICATIONS SNOMED Code(s): 01945923 Comment: - On Humira x 9weeks and prednisone - Follows with Dr. Almonte, consulted, appreciate recommendations - Previous bowel obstruction on last admission (3) Diarrhea Code(s): R19.7 - DIARRHEA, UNSPECIFIED SNOMED Code(s): 73776556 Comment: - 2/2 Salmonella - Will change atbx to ceftriaxone - Appreciate GI input - Continue IVF, lytes replacement and supportive care (4) Fever Code(s): R50.9 - FEVER, UNSPECIFIED SNOMED Code(s): 442874312 Comment: - Tylenol PRN - Follow blood cultures, concern given salmonella infection - ID to see tomorrow (5) DVT prophylaxis Code(s): ZAH1991 - SNOMED Code(s): 838691158 Comment: - SCDs (6) Full code status Code(s): Z78.9 - OTHER SPECIFIED HEALTH STATUS SNOMED Code(s): 559769205 Status and Disposition: remain inpatient
[2018-01-01] MEDS ORDERED: Piperacillin/Tazobac ADVAN(*) 3.375 GM in NS 0.9% 100 ML* 100 ML IVPB ONE (11:00)
[2018-01-01] MEDS ORDERED: Zosyn per Pharmacy* NOTE FOLLOW UP SCH (11:00)
--- NOTE | 2018-01-01 14:15 | RAD ---
HISTORY: fever COMPARISONS: November 03, 2013 VIEWS: 4: Frontal dual-energy and lateral views of the chest. FINDINGS: CARDIOMEDIASTINAL SILHOUETTE: The cardiomediastinal silhouette is normal. JORGE ALBERTO: The jorge alberto are normal. PLEURA: The costophrenic angles are sharp. No pleural abnormalities are noted. LUNG PARENCHYMA: The lungs are clear. ABDOMEN: The upper abdomen is clear. There is no subphrenic gas. BONES AND SOFT TISSUES: No bone or soft tissue abnormalities are noted. OTHER: None. IMPRESSION: NO ACTIVE CARDIOPULMONARY DISEASE.
[2018-01-01] MEDS ORDERED: ZOSYN 3.375 GM Q8H per EXTENDED INFUSION IVPB SCH ×2 (15:30)
[2018-01-01] MEDS ORDERED: cefTRIAXone* 1 GM in NS 0.9% 50 ML BAG IVPB SCH (16:00)
--- NOTE | 2018-01-01 16:09 | RAD ---
Indication: Abdominal pain. History of Crohn's disease. Comparison: MR angiogram of one day prior. November 21, 2017 CT. Technique: RIGHT upper quadrant ultrasound. Report: Appropriate direction flow documented in the portal and hepatic veins. 16 cm liver is normal in echogenicity. Negative for focal hepatic lesions. Negative for intrahepatic biliary dilatation. 5.0 mm common bile duct. Adequately distended gallbladder with 2 mm wall is remarkable for dependent biliary sludge. Negative for pericholecystic fluid. Negative for sonographic Andres's sign. Unremarkable well visualized pancreas. A small amount of nonloculated ascites is noted at the RIGHT upper quadrant and lower abdomen. 10.4 cm RIGHT kidney is unremarkable. IMPRESSION: 1. Biliary sludge at the gallbladder. No cholelithiasis or findings to suggest acute cholecystitis. 2. Negative for biliary dilatation. 3. Small volume of nonloculated ascites.
--- NOTE | 2018-01-01 16:43 | CONS ---
GASTROENTEROLOGY CONSULTATION DATE OF CONSULT: 01/01/2018. REQUESTING PROVIDER: Dilcia Hernadez NP. REASON FOR CONSULT: Diarrhea and abdominal pain. HISTORY OF PRESENT ILLNESS: The patient is a 42-year-old female known to me. She was a former patient of Dr. Hernadez, who will be seeing one of the new gastroenterologists when they arrive, who I took care of in the hospital early in November. At that time, she was having a Crohn's flare. She also had a partial small bowel obstruction. She recently saw our PA in the office for worsening abdominal pain and diarrhea. She did have an MRI of her abdomen, which from a GI standpoint looked pretty good; however, she threw up after the MRI, came to the emergency room, and was admitted. The patient states that her generalized abdominal pain has been worsening over the past few weeks. She states it is intolerable at this time. She is having frequent loose stools, most are nonbloody. She does have fevers and chills. Her stool was tested and it did come back positive for salmonella. She denies eating any recent melon, given the recent outbreak of salmonella. Her MRI really did not reveal anything from a GI standpoint out of the ordinary; however, she did have some MEDICAL DEVICE ENGINEER potential pathology. PAST MEDICAL HISTORY: Significant for Crohn's disease. She has been on Humira and Prednisone. She is currently on both, 35 mg of Prednisone. MEDICATIONS: 1. Humira, 40 mg every 7 days now. 2. Prednisone 35 mg a day. ALLERGIES: FLUCONAZOLE, AMOXICILLIN, LEVOFLOXACIN. FAMILY HISTORY: Uterine cancer and lung cancer. SOCIAL HISTORY: She denies any tobacco or IV drug use. She rarely drinks alcohol. REVIEW OF SYSTEMS: Twelve systems were reviewed. Other than that mentioned in the HPI were unremarkable. PHYSICAL EXAM: General: Mildly ill-appearing female in no apparent distress. Alert, oriented, pleasant, fluent. Vital Signs: Temperature 98.0, T-max has been a 101.8, blood pressure 124/66, pulse 79, respiratory rte 16, O2 sat 98 percent. HEENT: Mucus membranes are dry without lesions, ulcers, or exudate. Head is normocephalic, atraumatic. Neck: Supple. Trachea is midline. Heart: Regular rate and rhythm. No murmurs, rubs, or gallops. Lungs: Clear to auscultation bilaterally. No wheezes, rales, or rhonchi. Abdomen: Soft, no rebound, no guarding. Positive bowel sounds. Diffuse tenderness throughout. Skin: Warm and dry. Numerous tattoos. LABORATORY DATA: Of note, white count fell from 12 to 10, hemoglobin is 14.3, platelets 179. BUN is normal at 5, creatinine 0.83, lactic acid is normal at 0.5. She has a CRP that has gone from 11.89 yesterday to 57.5 for today. MICROBIOLOGY: Positive for salmonella. IMAGING STUDIES: MRI: Please see the body of the report. ASSESSMENT AND PLAN: This is a pleasant, 42-year-old female with a history of Crohn's disease who is immuno-compromised secondary to her Prednisone and Humira , who appears to have a salmonella diarrhea infection. Given her immunocompromised state, I would recommend treatment. She did empirically receive Zosyn. I would like to switch her to Cipro. I do wonder if the salmonella is contributing to at least her diarrhea, if not her pain and diarrhea. I would like to treat her for a few days and see how she does. I would not make any changes right now in her Humira. She needs to continue coming down on her Prednisone. I will continue to follow along closely. [id number]/[facility] #: [id number] [facility]
[2018-01-01] MEDS: Ciprofloxacin TAB* 500 MG PO SCH ×2 (17:01→20:06)
[2018-01-02] MEDS: oxyCODONE TAB* 5 MG TAB PO PRN ×4 (03:50→21:10)
[2018-01-02] MEDS: NS 0.9% 1000 ML* 1,000 ML IV SCH ×3 (03:50→21:09)
[2018-01-02] MEDS: Ondansetron 40 MG VIAL* 2 MG/ML 20 ML VIAL IV PRN ×4 (04:23→21:12)
[2018-01-02] MEDS: Morphine INJ* 10 MG/ML 1 ML CARPUJECT IV PRN ×2 (05:12→10:55)
[2018-01-02 05:59] LABS: ABS Basophils 0 10^3/ul (0-0.2); ABS Eosinophils 0 10^3/ul (0-0.6); ABS Lymphocytes 1.3 10^3/ul (1.0-4.8); ABS Monocytes 0.8 10^3/ul (0-0.8); ABS Neutrophils 5.6 10^3/ul (1.5-7.7); ABS Nucleated RBC 0 10^3/ul; Eosinophil % 0.4 % (0-6); Hematocrit 37 % (35-47); Hemoglobin 12.6 g/dl (12.0-16.0); Lymphocyte % 16.3 % (25-47); Mean Corpuscular HGB Conc 34 g/dl (31-36); Mean Corpuscular Hemoglobin 35 pg (27-31); Mean Corpuscular Volume 102 fL (80-97); Mean Platelet Volume 6.6 um3 (7.4-10.4); Nucleated Red Blood Cells % 0; Platelet Count 160 10^3/ul (150-450); Red Blood Count 3.63 10^6/ul (4.00-5.40); Red Cell Distribution Width 14 % (10.5-15); White Blood Count 7.8 10^3/ul (3.5-10.8)
[2018-01-02 06:19] LABS: EGFR Non-African American 92.4 (>60)
[2018-01-02] MEDS: predniSONE TAB* 10 MG PO SCH (09:02)
[2018-01-02] MEDS: Ciprofloxacin TAB* 500 MG PO SCH ×2 (09:02→21:09)
--- NOTE | 2018-01-02 10:13 | PN ---
Subjective Date of Service: 01/02/18 Interval History: Patient seen and examined. Incontinent of stool overnight, fevers improving. Still with abdominal pain but appears more comfortable today. Tolerating PO/ soft diet. Denies chest pain, no SOB, no n/v. Objective Active Medications: Acetaminophen (Tylenol Tab*) 650 mg PO Q6H PRN PRN Reason: FEVER/PAIN Last Admin: 01/01/18 07:51 Dose: 650 mg Ciprofloxacin (Cipro Tab*) 500 mg PO BID [facility] Last Admin: 01/02/18 09:02 Dose: 500 mg Sodium Chloride (Ns 0.9% 1000 Ml*) 1,000 mls @ 125 mls/hr IV PER RATE [facility] Last Admin: 01/02/18 03:50 Dose: 125 mls/hr Morphine Sulfate (Morphine Inj (Syringe)*) 5 mg IV Q4H PRN PRN Reason: PAIN Last Admin: 01/02/18 05:12 Dose: 5 mg Ondansetron HCl (Zofran 40 Mg Vial*) 4 mg IV Q4H PRN PRN Reason: NAUSEA Last Admin: 01/02/18 09:44 Dose: 4 mg Oxycodone HCl (Roxycodone Tab*) 10 mg PO Q4H PRN PRN Reason: PAIN Last Admin: 01/02/18 09:03 Dose: 10 mg Prednisone (Deltasone Tab*) 35 mg PO DAILY [facility] Last Admin: 01/02/18 09:02 Dose: 35 mg Vital Signs - 8 hr 01/02/18 01/02/18 01/02/18 03:42 03:50 05:12 Temperature 98.3 F Pulse Rate 71 Respiratory 18 18 18 Rate Blood Pressure 120/68 (mmHg) O2 Sat by Pulse 99 Oximetry 01/02/18 01/02/18 01/02/18 06:30 06:31 07:16 Temperature 98.5 F Pulse Rate 78 Respiratory 18 18 16 Rate Blood Pressure 111/66 (mmHg) O2 Sat by Pulse 99 Oximetry 01/02/18 09:03 Temperature Pulse Rate Respiratory 16 Rate Blood Pressure (mmHg) O2 Sat by Pulse Oximetry Oxygen Devices in Use Now: None Appearance: Aelrt, NAD Eyes: No Scleral Icterus, PERRLA Ears/Nose/Mouth/Throat: NL Teeth, Lips, Gums, Mucous Membranes Moist Neck: NL Appearance and Movements; NL JVP, Trachea Midline Respiratory: Symmetrical Chest Expansion and Respiratory Effort, Clear to Auscultation Cardiovascular: NL Sounds; No Murmurs; No JVD, RRR, No Edema Abdominal: NL Sounds; No Tenderness; No Distention, No Hepatosplenomegaly Extremities: No Edema Skin: No Rash or Ulcers Neurological: Alert and Oriented x 3, NL Muscle Strength and Tone Nutrition: Taking PO's Result Diagrams: 01/02/18 05:45 01/02/18 05:45 Microbiology and Other Data: Microbiology 12/31/17 18:00 Stool Gross Appearance - Final Stool C. difficile DNA Amplification - Final 027 Presumptive NEGATIVE Toxigenic C.diff NEGATIVE Stool Lactoferrin - Final Stool Occult Blood (MAGALI) - Final 12/31/17 18:09 Stool Gross Appearance - Final Stool Diagnostic Imaging: Patient Name: JASON PONCE Medical Record#: [id number] Ordering Physician: Ken Almonte MD Acct.#: [id number] : 1975 Age: 42 Sex: F Location: IMAGING Exam Date: 12/31/17 ADM Status: REG REF Order Information: MRI Enterography Accession Number: [id number] CPT: 07256 Indication: Crohn's disease. Previous ileal bowel resection. Assess for strictures and inflammation. Comparison: November 22, 2017 abdomen radiograph and November 21, 2017 CT. Technique: [employer] 1.5 Mandy [id number] with GEM suite. MRI enterography protocol. Volumen oral contrast. 1 mg glucagon administered IM. Contrast-enhanced MRI of the abdomen and pelvis was performed with 10 mL ProHance IV contrast. Multiphasic postcontrast series. Report: Negative for pleural effusions at the inferior thorax. No abnormality of the liver, gallbladder, or pancreas. Negative for biliary dilatation. Unremarkable spleen. Upper normal diameter of the small bowel loops. No compelling mural thickening or focal small bowel lesions or perienteric inflammatory change. Unremarkable RIGHT lower quadrant ileocolonic anastomosis. No abnormality of the unopacified colon through the splenic flexure. Assessment of the colon distal to the splenic flexure is limited due to absence of opacification of the lumen. Negative for ascites. Negative for hernias. Unremarkable adrenal glands and kidneys. Negative for ureteral dilatation. Heterogeneous signal at the distended urinary bladder due to motion artifact including from ureteral jets. Anteverted uterus with IUD in place. Nabothian cysts at the cervix. Bilateral enlarged ovaries. On the RIGHT there is a 3.5 cm maximum dimension lesion to represent 2 adjacent simple cyst or a solitary cyst with a thin internal septation. On the LEFT there are a few dominant cyst measuring up to 2.2 cm maximum diameter. No lymphadenopathy visualized. Normal diameter abdominal aorta and iliac arteries. Physiologic distention of the IVC. Negative for suspicious osseous lesions. No sacroiliitis evident. IMPRESSION: 1. Post ileal resection with unremarkable ileocolonic anastomosis. No inflammatory change of the alimentary tract evident. No gross distortion in the distribution of bowel loops or acute angulation to indicate peritoneal adhesions. Negative for ascites. 2. Consider pelvic ultrasound assessment bilateral ovarian cysts. Patient Name: JASON PONCE Medical Record#: [id number] Ordering Physician: Dilcia Hernadez NP Acct.#: [id number] : 1975 Age: 42 Sex: F Location: [address] [place] [address] MEDICAL Exam Date: 12/31/17 1506 ADM Status: ADM Michaelle Order Information: US TRANSVAGINAL Accession Number: [id number] CPT: 15949 INDICATION: Abdominal pain. COMPARISON: Comparison is made with a prior pelvic ultrasound from November 16, 2016. TECHNIQUE: Multiple real-time transvaginal images of the pelvis were obtained. FINDINGS: The uterus is normal in size, shape and echogenicity. The uterus measured 7.5 x 3.4 x 4.6 cm. The endometrial echo measured 0.9 cm in thickness. There is an IUD which appears to be in normal position. Note is made of a nabothian cyst measuring 0.8 cm in size. The right ovary measured 4.7 x 3.1 x 2.6 cm. The left ovary measured 5.6 x 2.7 x 2.6 cm. There is vascular flow within both ovaries. There are multiple bilateral slightly prominent follicular cysts. These measure 2.5 x 1.4 x 2.1, 2.1 x 1.5 x 2.0 and 2.1 x 1.1 x 1.9 cm in the right ovary. These measure 2.3 x 1.8 x 2.3 and 2.0 x 2.0 x 1.7 cm and the left ovary. There is a small amount of free intraperitoneal fluid in the cul-de-sac. IMPRESSION: 1. ENLARGED OVARIES WITH PROMINENT BILATERAL FOLLICULAR CYSTS. 2. IUD IN NORMAL POSITION. Assess/Plan/Problems-Billing Assessment: This is a 42 year old female with history of Crohn's and resection that presented to ER after MRI with contrast with fever, weakness, increased abdominal pain and diarrhea, positive stool culture for salmonella. - Patient Problems (1) Abdominal pain Code(s): R10.9 - UNSPECIFIED ABDOMINAL PAIN SNOMED Code(s): 84604885 Comment: - Improving - MRI and TV US as above - Pain control, IVF, soft diet as tolerated (2) Crohn's disease Code(s): K50.90 - CROHN'S DISEASE, UNSPECIFIED, WITHOUT COMPLICATIONS SNOMED Code(s): 09446512 Comment: - On Humira x 9weeks and prednisone - Consult with Dr. Almonte appreciated - Does not appear to be in a Crohn's flare - Taper steroid? - Previous bowel obstruction on last admission (3) Diarrhea Code(s): R19.7 - DIARRHEA, UNSPECIFIED SNOMED Code(s): 51369451 Comment: - 2/2 Salmonella - Seen by ID and GI - Changed to cipro yesterday, tolerating - Continue IVF, lytes replacement and supportive care (4) Fever Code(s): R50.9 - FEVER, UNSPECIFIED SNOMED Code(s): 303723692 Comment: - Tylenol PRN - Blood cx NTD - ID following (5) DVT prophylaxis Code(s): CLH1527 - SNOMED Code(s): 136387053 Comment: - SCDs (6) Full code status Code(s): Z78.9 - OTHER SPECIFIED HEALTH STATUS SNOMED Code(s): 635735727 Status and Disposition: remain inpatient
--- NOTE | 2018-01-02 10:26 | CONSULT ---
<Sukhjinder Ledesma - Last Filed: 01/02/18 10:01> Consult Consult: Infectious Disease Consult Note Consult Requested By: Gen Med POC: Dr. Evonne Mitchell HPI: JASON PONCE is a 42 F with pmhx notable for Crohn's (dx 17 years ago s/p ileocolonic resection, previously maintained on 6-MP, and now Prednisone and Humira), who presents with 1 week of worsening diarrhea and abdominal pain. Per patient and chart, was previously well controlled on 6-MP, subsequently with Crohns Flare in July that has proven difficult to control. Was started on high dose prednisone that is being gradually cross-tapered with Humira. 1 week ago began developing increased diarrhea and abdominal pain. No fevers, PO intolerance, some nausea but no emesis. No melena or BRBPR, no tenesmus, fecal incontinence. No other focal infectious symptoms. No sick contacts w/similar diarrhea symptoms. No odd ingestions. Has pets at home, but no amphibians. Was seen by GI as outpatient, had MRI Abd with contrast on Saturday, which while largely unremarkable caused patient to develop nausea, emesis, fatigue, malaise, and weakness. Presented to ED given this reaction to MRI. On saturday was initiated hydrated. On Sat, developed Fever and night sweats. ID consulted given septic appearing picture. Stool studies sent, notable for +Salmonella, neg Cdiff. On my eval, patient reports feeling better. No fevers since yesterday. Improved abd pain, diarrhea still present but with only 3 charted BMs in last 24 hours. Tolerating largely liquid diet. No other focal infectious symptoms or complaints. Of note, patients reports that Humira and Pred combo has not fully controlled her Crohns symptoms, despite being on them since Jul. ROS: 14 Point ROS negative except for positives in HPI. PMHx/PSHx: Crohns Disease s/p Ileocolonic Resection (17 years ago) Social Hx - Lives with two room mates - Works at a bar - Drinks etoh 12 drinks a week - No smoker - Uses CBD oil for pain Family Hx: Non contributory Allergies: aloe Allergy (Verified 12/25/17 14:54) Swelling cinnamon Allergy (Verified 12/25/17 14:54) Swelling fluconazole [From Diflucan] Allergy (Verified 12/25/17 14:54) Unknown Reaction Details amoxicillin Adverse Reaction (Verified 12/31/17 23:52) Nausea levofloxacin [From Levaquin] Adverse Reaction (Verified 12/31/17 23:52) Nausea metronidazole [From Flagyl] Adverse Reaction (Verified 12/31/17 23:52) Nausea Home Medications: Adalimumab (NF) [Humira Pen (NF)] 40 mg SUBCUT Q7D 11/21/17 [History Confirmed 12/31/17] predniSONE TAB* [Deltasone 10 MG TAB*] 35 mg PO DAILY 12/25/17 [History Confirmed 12/31/17] Oxymorphone (NF) [Opana (NF)] 5 mg PO Q6H PRN 12/31/17 [History Confirmed ] Active Inpatient Medications Acetaminophen (Tylenol Tab*) 650 mg PO Q6H PRN PRN Reason: FEVER/PAIN Last Admin: 01/01/18 07:51 Dose: 650 mg Ciprofloxacin (Cipro Tab*) 500 mg PO BID [facility] Last Admin: 01/02/18 09:02 Dose: 500 mg Sodium Chloride (Ns 0.9% 1000 Ml*) 1,000 mls @ 125 mls/hr IV PER RATE [facility] Last Admin: 01/02/18 03:50 Dose: 125 mls/hr Morphine Sulfate (Morphine Inj (Syringe)*) 5 mg IV Q4H PRN PRN Reason: PAIN Last Admin: 01/02/18 05:12 Dose: 5 mg Ondansetron HCl (Zofran 40 Mg Vial*) 4 mg IV Q4H PRN PRN Reason: NAUSEA Last Admin: 01/02/18 09:44 Dose: 4 mg Oxycodone HCl (Roxycodone Tab*) 10 mg PO Q4H PRN PRN Reason: PAIN Last Admin: 01/02/18 09:03 Dose: 10 mg Prednisone (Deltasone Tab*) 35 mg PO DAILY [facility] Last Admin: 01/02/18 09:02 Dose: 35 mg Vitals: Temp Pulse Resp BP Pulse Ox 36.9 C 78 16 111/66 99 01/02/18 07:16 01/02/18 07:16 01/02/18 09:03 01/02/18 07:16 01/02/18 07:16 Physical Exam: NAD/NT PEERL, EOMI, No scleral icterus, OP c lear CTAB RRR, No murmurs Abd soft, non tender, +BS No JACOB, WWP, 2+ DPs Labs Reviewed WBC: 7.8 Hgb 12.6 Cr 0.69 CRP 57.54 LFTs wnl T Bili 0.3 Fecal Lactoferrin neg Micro: Stool Cx 12/31: Salmonella +, Shiga toxin neg Cdiff neg BCx 12/31 Neg Assesment: 42 F with pmhx notable for Crohn's (dx 17 years ago s/p ileocolonic resection, previously maintained on 6-MP, and now Prednisone and Humira), who presents with 1 week of worsening diarrhea and abdominal pain, likely in setting of Salmonella infection. Given septic appearing picture on presentation with immunosuppresed status, agree with antibiotic treament. May benefit from terminal supervisor suppressive abx course as well. Plan: - Cont with 7 day course of Ciprofloxacin - Cont with home probiotic - Will discuss terminal supervisor suppressive antibiotics for eradication of salmonella as outpatient - Trend fever and stool curve - Advance diet as tolerated Case discussed with ID Attending. Sukhjinder Ledesma, PGY3 <Jair LEMOS,Serafin Knott - Last Filed: 01/03/18 09:06> Consult Consult: Seen, examined, discussed with Dr Ledesma, I agree with his full note. 1. Fever, diaphoresis, acute on subacute diarrhea with Salmonella in stool culture, defervesced with antibiotics. Salmonella colitis. Continue cipro for a week. She is immunocompromised so may try 6 weeks of bactrim to try to prevent colonization.
[2018-01-03] MEDS: oxyCODONE TAB* 5 MG TAB PO PRN ×5 (03:26→21:15)
[2018-01-03] MEDS: Ondansetron 40 MG VIAL* 2 MG/ML 20 ML VIAL IV PRN ×2 (03:27→12:33)
[2018-01-03] MEDS: Morphine INJ* 10 MG/ML 1 ML CARPUJECT IV PRN ×2 (05:12→14:17)
[2018-01-03] MEDS: NS 0.9% 1000 ML* 1,000 ML IV SCH ×3 (07:07→22:50)
[2018-01-03 07:12] LABS: ABS Basophils 0 10^3/ul (0-0.2); ABS Eosinophils 0 10^3/ul (0-0.6); ABS Lymphocytes 1.4 10^3/ul (1.0-4.8); ABS Monocytes 0.6 10^3/ul (0-0.8); ABS Neutrophils 3.7 10^3/ul (1.5-7.7); ABS Nucleated RBC 0 10^3/ul; Eosinophil % 0.4 % (0-6); Hematocrit 32 % (35-47); Hemoglobin 10.9 g/dl (12.0-16.0); Lymphocyte % 24.7 % (25-47); Mean Corpuscular HGB Conc 34 g/dl (31-36); Mean Corpuscular Hemoglobin 35 pg (27-31); Mean Corpuscular Volume 101 fL (80-97); Mean Platelet Volume 6.7 um3 (7.4-10.4); Nucleated Red Blood Cells % 0; Platelet Count 136 10^3/ul (150-450); Red Blood Count 3.15 10^6/ul (4.00-5.40); Red Cell Distribution Width 14 % (10.5-15); White Blood Count 5.8 10^3/ul (3.5-10.8)
[2018-01-03 07:45] LABS: EGFR Non-African American 92.4 (>60)
[2018-01-03] MEDS: Ciprofloxacin TAB* 500 MG PO SCH ×2 (08:19→21:10)
[2018-01-03] MEDS: predniSONE TAB* 10 MG PO SCH (08:20)
--- NOTE | 2018-01-03 10:00 | PN ---
Subjective Date of Service: 01/03/18 Interval History: Patient seen and examined. Feeling improved, 5 episodes of diarrhea overnight and this morning. Abdominal pain controlled, afebrile. Still with weakness and times, no palpitations, no further complaints. Objective Active Medications: Acetaminophen (Tylenol Tab*) 650 mg PO Q6H PRN PRN Reason: FEVER/PAIN Last Admin: 01/01/18 07:51 Dose: 650 mg Ciprofloxacin (Cipro Tab*) 500 mg PO BID [facility] Last Admin: 01/03/18 08:19 Dose: 500 mg Sodium Chloride (Ns 0.9% 1000 Ml*) 1,000 mls @ 125 mls/hr IV PER RATE [facility] Last Admin: 01/03/18 07:07 Dose: 125 mls/hr Magnesium Chloride (Slow Mag Ec Tab*) 64 mg PO DAILY [facility] Morphine Sulfate (Morphine Inj (Syringe)*) 5 mg IV Q4H PRN PRN Reason: PAIN Last Admin: 01/03/18 05:12 Dose: 5 mg Ondansetron HCl (Zofran 40 Mg Vial*) 4 mg IV Q4H PRN PRN Reason: NAUSEA Last Admin: 01/03/18 03:27 Dose: 4 mg Oxycodone HCl (Roxycodone Tab*) 10 mg PO Q4H PRN PRN Reason: PAIN Last Admin: 01/03/18 08:19 Dose: 10 mg Prednisone (Deltasone Tab*) 30 mg PO DAILY [facility] Last Admin: 01/03/18 08:20 Dose: 30 mg Vital Signs - 8 hr 01/03/18 01/03/18 01/03/18 03:07 03:26 05:12 Temperature 98.1 F Pulse Rate 62 Respiratory 16 16 18 Rate Blood Pressure 144/94 (mmHg) O2 Sat by Pulse 99 Oximetry 01/03/18 01/03/18 01/03/18 07:08 07:14 07:31 Temperature 98.2 F Pulse Rate 61 Respiratory 18 16 16 Rate Blood Pressure 127/79 (mmHg) O2 Sat by Pulse 99 Oximetry 01/03/18 08:19 Temperature Pulse Rate Respiratory 18 Rate Blood Pressure (mmHg) O2 Sat by Pulse Oximetry Oxygen Devices in Use Now: None Appearance: Alert, NAD Eyes: No Scleral Icterus, PERRLA Ears/Nose/Mouth/Throat: NL Teeth, Lips, Gums, Mucous Membranes Moist Neck: NL Appearance and Movements; NL JVP, Trachea Midline Respiratory: Symmetrical Chest Expansion and Respiratory Effort, Clear to Auscultation Cardiovascular: NL Sounds; No Murmurs; No JVD, RRR, No Edema Abdominal: - - diffusely tender, hyperactive BS Extremities: No Edema, No Clubbing, Cyanosis Skin: No Rash or Ulcers Neurological: Alert and Oriented x 3, NL Gait Nutrition: Taking PO's, - - soft diet, decreased appetite Result Diagrams: 01/03/18 06:55 01/03/18 06:55 Microbiology and Other Data: Microbiology 12/31/17 18:00 Stool Gross Appearance - Final Stool C. difficile DNA Amplification - Final 027 Presumptive NEGATIVE Toxigenic C.diff NEGATIVE Stool Lactoferrin - Final Stool Occult Blood (MAGALI) - Final 12/31/17 18:09 Stool Gross Appearance - Final Stool Diagnostic Imaging: Patient Name: JASON PONCE Medical Record#: [id number] Ordering Physician: Ken Almonte MD Acct.#: [id number] : 1975 Age: 42 Sex: F Location: IMAGING Exam Date: 12/31/17 ADM Status: REG REF Order Information: MRI Enterography Accession Number: [id number] CPT: 64296 Indication: Crohn's disease. Previous ileal bowel resection. Assess for strictures and inflammation. Comparison: November 22, 2017 abdomen radiograph and November 21, 2017 CT. Technique: [employer] 1.5 Mandy [id number] with GEM suite. MRI enterography protocol. Volumen oral contrast. 1 mg glucagon administered IM. Contrast-enhanced MRI of the abdomen and pelvis was performed with 10 mL ProHance IV contrast. Multiphasic postcontrast series. Report: Negative for pleural effusions at the inferior thorax. No abnormality of the liver, gallbladder, or pancreas. Negative for biliary dilatation. Unremarkable spleen. Upper normal diameter of the small bowel loops. No compelling mural thickening or focal small bowel lesions or perienteric inflammatory change. Unremarkable RIGHT lower quadrant ileocolonic anastomosis. No abnormality of the unopacified colon through the splenic flexure. Assessment of the colon distal to the splenic flexure is limited due to absence of opacification of the lumen. Negative for ascites. Negative for hernias. Unremarkable adrenal glands and kidneys. Negative for ureteral dilatation. Heterogeneous signal at the distended urinary bladder due to motion artifact including from ureteral jets. Anteverted uterus with IUD in place. Nabothian cysts at the cervix. Bilateral enlarged ovaries. On the RIGHT there is a 3.5 cm maximum dimension lesion to represent 2 adjacent simple cyst or a solitary cyst with a thin internal septation. On the LEFT there are a few dominant cyst measuring up to 2.2 cm maximum diameter. No lymphadenopathy visualized. Normal diameter abdominal aorta and iliac arteries. Physiologic distention of the IVC. Negative for suspicious osseous lesions. No sacroiliitis evident. IMPRESSION: 1. Post ileal resection with unremarkable ileocolonic anastomosis. No inflammatory change of the alimentary tract evident. No gross distortion in the distribution of bowel loops or acute angulation to indicate peritoneal adhesions. Negative for ascites. 2. Consider pelvic ultrasound assessment bilateral ovarian cysts. Patient Name: JASON PONCE Medical Record#: [id number] Ordering Physician: Dilcia Hernadez [employer] Acct.#: [id number] : 1975 Age: 42 Sex: F Location: [address] [place] [address] MEDICAL Exam Date: 12/31/17 1506 ADM Status: ADM Michaelle Order Information: US TRANSVAGINAL Accession Number: [id number] CPT: 27555 INDICATION: Abdominal pain. COMPARISON: Comparison is made with a prior pelvic ultrasound from November 16, 2016. TECHNIQUE: Multiple real-time transvaginal images of the pelvis were obtained. FINDINGS: The uterus is normal in size, shape and echogenicity. The uterus measured 7.5 x 3.4 x 4.6 cm. The endometrial echo measured 0.9 cm in thickness. There is an IUD which appears to be in normal position. Note is made of a nabothian cyst measuring 0.8 cm in size. The right ovary measured 4.7 x 3.1 x 2.6 cm. The left ovary measured 5.6 x 2.7 x 2.6 cm. There is vascular flow within both ovaries. There are multiple bilateral slightly prominent follicular cysts. These measure 2.5 x 1.4 x 2.1, 2.1 x 1.5 x 2.0 and 2.1 x 1.1 x 1.9 cm in the right ovary. These measure 2.3 x 1.8 x 2.3 and 2.0 x 2.0 x 1.7 cm and the left ovary. There is a small amount of free intraperitoneal fluid in the cul-de-sac. IMPRESSION: 1. ENLARGED OVARIES WITH PROMINENT BILATERAL FOLLICULAR CYSTS. 2. IUD IN NORMAL POSITION. Assess/Plan/Problems-Billing Assessment: This is a 42 year old female with history of Crohn's and resection that presented to ER after MRI with contrast with fever, weakness, increased abdominal pain and diarrhea, positive stool culture for salmonella. - Patient Problems (1) Abdominal pain Code(s): R10.9 - UNSPECIFIED ABDOMINAL PAIN SNOMED Code(s): 63717219 Comment: - Improving, continue pain control as needed - MRI and TV US as above - IVF, soft diet as tolerated (2) Crohn's disease Code(s): K50.90 - CROHN'S DISEASE, UNSPECIFIED, WITHOUT COMPLICATIONS SNOMED Code(s): 19325033 Comment: - On Humira x 9weeks and prednisone - Consult with Dr. Almonte appreciated - Does not appear to be in a Crohn's flare - Taper steroid? Appreciate recs from GI and taper dose/schedule (3) Diarrhea Code(s): R19.7 - DIARRHEA, UNSPECIFIED SNOMED Code(s): 46809825 Comment: - 2/2 Salmonella - Seen by ID and GI - Continue cipro, will likely need Bactrim post-discharge - Continue IVF, lytes replacement and supportive care (4) Fever Code(s): R50.9 - FEVER, UNSPECIFIED SNOMED Code(s): 291416772 Comment: - Resolved - Blood cx NTD (5) Electrolyte and fluid disorder Code(s): E87.8 - OTH DISORDERS OF ELECTROLYTE AND FLUID BALANCE, NEC SNOMED Code(s): 71026391 Comment: - Sodium and potassium normal - Start slo-mag today (6) DVT prophylaxis Code(s): RWD7854 - SNOMED Code(s): 974773215 Comment: - SCDs (7) Full code status Code(s): Z78.9 - OTHER SPECIFIED HEALTH STATUS SNOMED Code(s): 263112605 Status and Disposition: remain inpatient, likely DC tomorrow if diarrhea continues to improve.
--- NOTE | 2018-01-03 10:44 | ED ---
Pradeep Glover Angela, scribed for Saul Lee MD on 12/31/17 at 1245 . Abdominal Pain/Female - HPI Summary HPI Summary: This pt is a 42 y/o female presenting to [facility] c/o abd pain. She states she has a hx of Crohns disease. Pt additionally reports heart palpitations, generalized weakness, nausea, and diarrhea. Diarrhea is described as watery, non bloody and without mucous. She currently has a fever of 101 F. Denies cough, rhinorrhea, dysuria. Pt notes she was admitted in the beginning of November for an active flare. She reports her flare began at the end of July 2017. Pt had an MRI with contrast this morning ordered by Dr. Almonte. Pt had nausea while her MRI and was given Zofran with minimal relief. She called Dr. Almonte GI, who was advised her to come to the ED. PMHx of Crohn's disease since age 17. Pt reports she was taking Purinethol for her Crohn's for a very long time and is no longer taking it because it affected her liver. She is currently on prednisone 35 mg and Humira infusion is every week. Her last infusion was today. - History of Current Complaint Chief Complaint: EDAbdPain Stated Complaint: NAUSEA Time Seen by Provider: 12/31/17 12:25 Hx Obtained From: Patient Onset/Duration: Lasting Weeks, Still Present Timing: Weeks Severity Currently: Severe Pain Intensity: 8 Pain Scale Used: 0-10 Numeric Location: Diffuse Radiates: No Character: Sharp Aggravating Factor(s): Nothing Alleviating Factor(s): Nothing Associated Signs and Symptoms: Positive: Fever, Nausea, Diarrhea, Other: - POSITIVE: palpitations, generalized weakness. NEGATIVE: cough, rhinorrhea, dysuria. Negative: Vomiting Allergies/Adverse Reactions: Allergies Allergy/AdvReac Type Severity Reaction Status Date / Time aloe Allergy Swelling Verified 12/25/17 14:54 amoxicillin Allergy Nausea Verified 12/25/17 14:54 cinnamon Allergy Swelling Verified 12/25/17 14:54 fluconazole [From Diflucan] Allergy Unknown Verified 12/25/17 14:54 Reaction Details levofloxacin [From Levaquin] Allergy Nausea Verified 12/25/17 14:54 Home Medications: Home Medications Oxymorphone (NF) [Opana (NF)] 5 mg PO Q6H PRN 12/31/17 [History Confirmed ] PMH/Surg Hx/FS Hx/Imm Hx Endocrine/Hematology History: Denies: Hx Diabetes Cardiovascular History: Denies: Hx Hypertension, Hx Pacemaker/ICD Respiratory History: Reports: Hx Seasonal Allergies GI History: Reports: Hx Crohn's Disease, Hx Gastroesophageal Reflux Disease, Other GI Disorders - CROHNS SPLENAMEGALY History: Denies: Hx Renal Disease Musculoskeletal History: Reports: Hx Arthritis Sensory History: Reports: Hx Contacts or Glasses Denies: Hx Hearing Aid Opthamlomology History: Reports: Hx Contacts or Glasses Psychiatric History: Reports: Hx Anxiety, Hx Depression Denies: Hx Panic Disorder - Cancer History Cancer Type, Location and Year: BASAL CELL NECK Hx Chemotherapy: No Hx Radiation Therapy: No - Surgical History Surgery Procedure, Year, and Place: bowel resection 1996; Bartholins cyst 2008; LEEP 1996; Tonsilectomy; urethra enlargement Infectious Disease History: No Infectious Disease History: Denies: Traveled Outside the [place] in Last 30 Days - Family History Known Family History: Positive: Other - Negative breast cancer Negative: Seizure Disorder - Social History Alcohol Use: Weekly Alcohol Amount: 8 drinks per week Hx Substance Use: No Substance Use Type: Reports: None Substance Use Comment - Amount & Last Used: oxymorphone Hx Tobacco Use: Yes Smoking Status (MU): Former Smoker Type: Cigarettes Amount Used/How Often: 5/day Have You Smoked in the Last Year: Yes Review of Systems Negative: Fever Negative: Nasal Discharge Positive: Palpitations. Negative: Chest Pain Negative: Cough Positive: Abdominal Pain, Diarrhea, Nausea Negative: dysuria Positive: Weakness - generalized All Other Systems Reviewed And Are Negative: Yes Physical Exam - Summary Physical Exam Summary: VITAL SIGNS: Reviewed. GENERAL: Patient is a thin female with some distress secondary to pain. Patient is not in any acute respiratory distress. HEAD AND FACE: Normocephalic and atraumatic. EYES: PERRLA, EOMI x 2, No injected conjunctiva. EARS: Hearing grossly intact. Ear canals and tympanic membranes are WNL. MOUTH: Oropharynx within normal limits. NECK: Supple, trachea is midline, no adenopathy, no JVD. CHEST: Symmetric, no tenderness at palpation LUNGS: Clear to auscultation bilaterally. No wheezing or crackles. CVS: RRR, S1 and S2 present, no murmurs or gallops appreciated. ABDOMEN: Soft. Diffuse abdominal tenderness. No signs of distention. Positive bowel sounds. No rebound no guarding, and no masses palpated. No abdominal bruit or pulsations. EXTREMITIES: FROM in all major joints, no edema, no cyanosis or clubbing. NEURO: Alert and oriented x 3. No acute neurological deficits. Speech is normal. SKIN: Dry and warm. Pt seems to be febrile. Triage Information Reviewed: Yes Vital Signs On Initial Exam: Initial Vitals Temp Pulse Resp BP Pulse Ox 101 F 110 14 171/94 97 12/31/17 12:15 12/31/17 12:15 12/31/17 12:15 12/31/17 12:15 12/31/17 12:15 Vital Signs Reviewed: Yes Diagnostics - Vital Signs Vital Signs Temp Pulse Resp BP Pulse Ox 12/31/17 12:15 101 F 110 14 171/94 97 - Laboratory Result Diagrams: 12/31/17 12:45 12/31/17 12:45 Lab Statement: Any lab studies that have been ordered have been reviewed, and results considered in the medical decision making process. - EKG 12:46 Cardiac Rate: Tachycardia - at 101 bpm EKG Rhythm: Sinus Tachycardia EKG Interpretation: No ST elevations. ST depressions V2-V6. EKG Comparison: No Significant Change - Similar to previous EKG on 10/13/13. - Additional Comments Diagnostic Additional Comments: Abdomen MRI, as read by radiologist IMPRESSION: 1. Post ileal resection with unremarkable ileocolonic anastomosis. No inflammatory change of the alimentary tract evident. No gross distortion in the distribution of bowel loops or acute angulation to indicate peritoneal adhesions. Negative for ascites. 2. Consider pelvic ultrasound assessment bilateral ovarian cysts. Dr. Lee has reviewed this radiology report. Abdominal Pain Fem Course/Dx - Course Course Of Treatment: Pt is a 42 y/o female, with hx of Crohn's disease, who presents with abd pain. Pt additionally reports heart palpitations, generalized weakness, nausea, and diarrhea. Diarrhea is described as watery, non bloody and without mucous. She currently has a fever of 101 F. Denies cough, rhinorrhea, dysuria. Test results without any significant abnormalities except for WBC of 12.9, without any bands, sodium of 137, potassium of 3, magnesium of 1.6, CR P is 11.8. Urinalysis is negative for UTI. MRI done this morning shows 1. Post ileal resection with unremarkable ileocolonic anastomosis. No inflammatory change of the alimentary tract evident. No gross distortion in the distribution of bowel loops or acute angulation to indicate peritoneal adhesions. Negative for ascites. 2. Consider pelvic ultrasound assessment bilateral ovarian cysts. The pt was given IV fluids and Reglan for the nausea and vomiting. I discussed the case with Dr. Almonte, front end developer designer, who reports he will consult for the pt and requests admission to the medical team. I discussed with Dr. Hernández , hospitalist, who accepted the pt for admission. Pt is hemodynamically stable , alert and oriented x3. - Diagnoses Provider Diagnoses: Nausea, vomiting and diarrhea, Abdominal pain - Provider Notifications Discussed Care Of Patient With: Ken Almonte Time Discussed With Above Provider: 14:14 Instructed by Provider To: Other - I discussed pt care with Dr. Almonte, GI, who recommends admission to hospitalist. [14:22] I discussed with Dr. Hernández, hospialist, who accepted the pt for admission. Discharge - Sign-Out/Discharge Documenting (check all that apply): Discharge/Admit/Transfer - Admit - Discharge Plan Condition: Stable Disposition: ADMITTED TO [facility] The documentation as recorded by the Pradeep valera Angela accurately reflects the service I personally performed and the decisions made by me, Saul Lee MD.
[2018-01-03] MEDS: Magnesium Chloride EC TAB* 64 MG PO SCH (12:33)
--- NOTE | 2018-01-03 14:58 | PN ---
Progress Note - Progress Note Date of Service: 01/03/18 SOAP: Subjective: CC: diarrhea HPI: 42 year old woman with Crohn's on anti TNF agent, corticosteroids and worsening diarrhea with diffuse abd pain and fever. Diarrhea down to 6 times today so far, abd pain improved not gone. Eating some. No fever 24 hrs. No rash. Objective: Vital Signs Temp 36.4 C 01/03/18 11:24 Pulse 81 01/03/18 11:24 Resp 18 01/03/18 14:17 BP 118/66 01/03/18 11:24 Pulse Ox 98 01/03/18 11:24 Intake & Output 01/02/18 01/03/18 01/03/18 18:59 06:59 18:59 Intake Total 1440 5777 1670 Output Total 0 Balance 1440 5777 1670 Intake: IV Fluids 4897 990 NS (0.9%) 4897 990 Oral 1440 880 680 Output: Urine 0 Other: Estimated Void Medium Medium # Bowel Movements 0 0 6 Estimated Stool Amount Large # Voids 2 2 Gen:awake, no distress HEENT: no thrush Heart:RRR no murmur Lungs:CTA BL Abd:+BS mild diffuse tenderness no rebound Skin: No rash Laboratory Results - last 24 hr 01/03/18 01/03/18 06:55 06:55 WBC 5.8 RBC 3.15 L Hgb 10.9 L Hct 32 L MCV 101 H MCH 35 H MCHC 34 RDW 14 Plt Count 136 L MPV 6.7 L Neut % (Auto) 63.7 Lymph % (Auto) 24.7 L [place] % (Auto) 11.0 H Eos % (Auto) 0.4 Baso % (Auto) 0.2 Absolute Neuts (auto) 3.7 Absolute Lymphs (auto) 1.4 Absolute Monos (auto) 0.6 Absolute Eos (auto) 0 Absolute Basos (auto) 0 Absolute Nucleated RBC 0 Nucleated RBC % 0 Sodium 141 Potassium 3.7 Chloride 112 H Carbon Dioxide 26 Anion Gap 3 BUN 2 L Creatinine 0.69 Est GFR ( Amer) 118.9 Est GFR (Non-Af Amer) 92.4 BUN/Creatinine Ratio 2.9 L Glucose 91 Calcium 7.7 L Total Bilirubin 0.20 AST 24 ALT 29 Alkaline Phosphatase 41 Total Protein 4.8 L Albumin 2.7 L Globulin 2.1 Albumin/Globulin Ratio 1.3 Microbiology 12/31/17 13:14 Aerobic Blood Culture - Preliminary Blood Venous No Growth Day 3 Anaerobic Blood Culture - Preliminary No Growth Day 3 12/31/17 12:45 Aerobic Blood Culture - Preliminary Blood Venous No Growth Day 3 Anaerobic Blood Culture - Preliminary No Growth Day 3 12/31/17 18:09 Stool Culture - Final Stool Salmonella Species Stool Gross Appearance - Final Shiga Toxin I & II - Final Negative Shiga Toxin 1 & 2 Assessment: 1. Salmonella enterocolitis 2. Crohn's disease 3. corticosteroid and TNF shyann use Plan: 1. cipro 500 mg bid for 7 days then bactrim DS daily for 4 weeks
[2018-01-04] MEDS: oxyCODONE TAB* 5 MG TAB PO PRN ×5 (04:07→21:05)
[2018-01-04] MEDS: Ondansetron 40 MG VIAL* 2 MG/ML 20 ML VIAL IV PRN (04:58)
[2018-01-04] MEDS: Morphine INJ* 10 MG/ML 1 ML CARPUJECT IV PRN ×2 (05:09→09:30)
[2018-01-04] MEDS: predniSONE TAB* 10 MG PO SCH (08:13)
[2018-01-04] MEDS: Ciprofloxacin TAB* 500 MG PO SCH ×2 (08:14→21:06)
[2018-01-04] MEDS: Magnesium Chloride EC TAB* 64 MG PO SCH (08:14)
--- NOTE | 2018-01-04 11:24 | PN ---
Subjective Date of Service: 01/04/18 Interval History: Patient seen and examined. Remains with abdominal pain and diarrhea but overall improving. Tolerating PO, afebrile, denies chest pain or SOB. Still feeling weak. Objective Active Medications: Acetaminophen (Tylenol Tab*) 650 mg PO Q6H PRN PRN Reason: FEVER/PAIN Last Admin: 01/01/18 07:51 Dose: 650 mg Ciprofloxacin (Cipro Tab*) 500 mg PO BID [facility] Last Admin: 01/04/18 08:14 Dose: 500 mg Sodium Chloride (Ns 0.9% 1000 Ml*) 1,000 mls @ 125 mls/hr IV PER RATE [facility] Last Admin: 01/03/18 22:50 Dose: 125 mls/hr Magnesium Chloride (Slow Mag Ec Tab*) 64 mg PO DAILY [facility] Last Admin: 01/04/18 08:14 Dose: 64 mg Morphine Sulfate (Morphine Inj (Syringe)*) 5 mg IV Q4H PRN PRN Reason: PAIN Last Admin: 01/04/18 09:30 Dose: 5 mg Ondansetron HCl (Zofran 40 Mg Vial*) 4 mg IV Q4H PRN PRN Reason: NAUSEA Last Admin: 01/04/18 04:58 Dose: 4 mg Oxycodone HCl (Roxycodone Tab*) 10 mg PO Q4H PRN PRN Reason: PAIN Last Admin: 01/04/18 08:13 Dose: 10 mg Prednisone (Deltasone Tab*) 30 mg PO DAILY [facility] Last Admin: 01/04/18 08:13 Dose: 30 mg Vital Signs - 8 hr 01/04/18 01/04/18 01/04/18 04:01 04:07 05:09 Temperature 98.1 F Pulse Rate 58 Respiratory 18 18 18 Rate Blood Pressure 138/83 (mmHg) O2 Sat by Pulse 97 Oximetry 01/04/18 01/04/18 01/04/18 07:44 08:13 09:30 Temperature 98.6 F Pulse Rate Respiratory 16 16 Rate Blood Pressure (mmHg) O2 Sat by Pulse Oximetry Oxygen Devices in Use Now: None Appearance: Alert, NAD Ears/Nose/Mouth/Throat: NL Teeth, Lips, Gums, Mucous Membranes Moist Neck: NL Appearance and Movements; NL JVP, Trachea Midline Respiratory: Symmetrical Chest Expansion and Respiratory Effort, Clear to Auscultation Cardiovascular: NL Sounds; No Murmurs; No JVD, RRR, No Edema Abdominal: NL Sounds; No Tenderness; No Distention, No Hepatosplenomegaly Extremities: No Edema Skin: No Rash or Ulcers Neurological: Alert and Oriented x 3, NL Sensation, NL Gait Nutrition: Taking PO's Result Diagrams: 01/03/18 06:55 01/03/18 06:55 Microbiology and Other Data: Microbiology 12/31/17 18:00 Stool Gross Appearance - Final Stool C. difficile DNA Amplification - Final 027 Presumptive NEGATIVE Toxigenic C.diff NEGATIVE Stool Lactoferrin - Final Stool Occult Blood (MAGALI) - Final 12/31/17 18:09 Stool Gross Appearance - Final Stool Diagnostic Imaging: Patient Name: JASON PONCE Medical Record#: [id number] Ordering Physician: Ken Almonte MD Acct.#: [id number] : 1975 Age: 42 Sex: F Location: IMAGING Exam Date: 12/31/17 ADM Status: REG REF Order Information: MRI Enterography Accession Number: [id number] CPT: 55717 Indication: Crohn's disease. Previous ileal bowel resection. Assess for strictures and inflammation. Comparison: November 22, 2017 abdomen radiograph and November 21, 2017 CT. Technique: Aylaa 1.5 Mandy [id number] with GEM suite. MRI enterography protocol. Volumen oral contrast. 1 mg glucagon administered IM. Contrast-enhanced MRI of the abdomen and pelvis was performed with 10 mL ProHance IV contrast. Multiphasic postcontrast series. Report: Negative for pleural effusions at the inferior thorax. No abnormality of the liver, gallbladder, or pancreas. Negative for biliary dilatation. Unremarkable spleen. Upper normal diameter of the small bowel loops. No compelling mural thickening or focal small bowel lesions or perienteric inflammatory change. Unremarkable RIGHT lower quadrant ileocolonic anastomosis. No abnormality of the unopacified colon through the splenic flexure. Assessment of the colon distal to the splenic flexure is limited due to absence of opacification of the lumen. Negative for ascites. Negative for hernias. Unremarkable adrenal glands and kidneys. Negative for ureteral dilatation. Heterogeneous signal at the distended urinary bladder due to motion artifact including from ureteral jets. Anteverted uterus with IUD in place. Nabothian cysts at the cervix. Bilateral enlarged ovaries. On the RIGHT there is a 3.5 cm maximum dimension lesion to represent 2 adjacent simple cyst or a solitary cyst with a thin internal septation. On the LEFT there are a few dominant cyst measuring up to 2.2 cm maximum diameter. No lymphadenopathy visualized. Normal diameter abdominal aorta and iliac arteries. Physiologic distention of the IVC. Negative for suspicious osseous lesions. No sacroiliitis evident. IMPRESSION: 1. Post ileal resection with unremarkable ileocolonic anastomosis. No inflammatory change of the alimentary tract evident. No gross distortion in the distribution of bowel loops or acute angulation to indicate peritoneal adhesions. Negative for ascites. 2. Consider pelvic ultrasound assessment bilateral ovarian cysts. Patient Name: JASON PONCE Medical Record#: [id number] Ordering Physician: Dilcia Hernadez NP Acct.#: [id number] : 1975 Age: 42 Sex: F Location: [address] [place] [address] MEDICAL Exam Date: 12/31/17 1506 ADM Status: ADM Michaelle Order Information: US TRANSVAGINAL Accession Number: [id number] CPT: 48552 INDICATION: Abdominal pain. COMPARISON: Comparison is made with a prior pelvic ultrasound from November 16, 2016. TECHNIQUE: Multiple real-time transvaginal images of the pelvis were obtained. FINDINGS: The uterus is normal in size, shape and echogenicity. The uterus measured 7.5 x 3.4 x 4.6 cm. The endometrial echo measured 0.9 cm in thickness. There is an IUD which appears to be in normal position. Note is made of a nabothian cyst measuring 0.8 cm in size. The right ovary measured 4.7 x 3.1 x 2.6 cm. The left ovary measured 5.6 x 2.7 x 2.6 cm. There is vascular flow within both ovaries. There are multiple bilateral slightly prominent follicular cysts. These measure 2.5 x 1.4 x 2.1, 2.1 x 1.5 x 2.0 and 2.1 x 1.1 x 1.9 cm in the right ovary. These measure 2.3 x 1.8 x 2.3 and 2.0 x 2.0 x 1.7 cm and the left ovary. There is a small amount of free intraperitoneal fluid in the cul-de-sac. IMPRESSION: 1. ENLARGED OVARIES WITH PROMINENT BILATERAL FOLLICULAR CYSTS. 2. IUD IN NORMAL POSITION. Assess/Plan/Problems-Billing Assessment: This is a 42 year old female with history of Crohn's and resection that presented to ER after MRI with contrast with fever, weakness, increased abdominal pain and diarrhea, positive stool culture for salmonella, clinically improving. - Patient Problems (1) Abdominal pain Code(s): R10.9 - UNSPECIFIED ABDOMINAL PAIN SNOMED Code(s): 51357105 Comment: - Improving, continue pain control as needed - Will need outpatient follow up with GI and CLINICAL EDUCATION ACADEMIC COORDINATOR, may be a component of ovarian cysts contributing to pain - MRI and TV US as above - Will DC IVF - Soft diet as tolerated (2) Crohn's disease Code(s): K50.90 - CROHN'S DISEASE, UNSPECIFIED, WITHOUT COMPLICATIONS SNOMED Code(s): 71884602 Comment: - On Humira x 9weeks and prednisone - Consult with Dr. Almonte appreciated - Does not appear to be in a Crohn's flare - Follow up with GI for steroid taper as an outpatient (3) Diarrhea Code(s): R19.7 - DIARRHEA, UNSPECIFIED SNOMED Code(s): 69961038 Comment: - 2/2 Salmonella, improving, two loose stools this AM - Seen by ID and GI - Continue cipro, Bactrim DS x4 weeks at discharge (4) Fever Code(s): R50.9 - FEVER, UNSPECIFIED SNOMED Code(s): 417699574 Comment: - Resolved - Blood cx NTD (5) Electrolyte and fluid disorder Code(s): E87.8 - OTH DISORDERS OF ELECTROLYTE AND FLUID BALANCE, NEC SNOMED Code(s): 38359982 Comment: - Sodium and potassium normal - Continue slo-mag (6) DVT prophylaxis Code(s): BOR5411 - SNOMED Code(s): 293126265 Comment: - SCDs (7) Full code status Code(s): Z78.9 - OTHER SPECIFIED HEALTH STATUS SNOMED Code(s): 397926581 Status and Disposition: Discussed discharge planning at length, patient still feeling weak and having active diarrhea. Will remain inpatient today and DC in the AM. Follows with pain clinic, will need appointment this week, as well as follow up with GI, ID and CLINICAL EDUCATION ACADEMIC COORDINATOR.
[2018-01-05] MEDS: oxyCODONE TAB* 5 MG TAB PO PRN ×2 (03:23→08:05)
[2018-01-05] MEDS: Ciprofloxacin TAB* 500 MG PO SCH (08:05)
[2018-01-05] MEDS: predniSONE TAB* 10 MG PO SCH (08:05)
[2018-01-05] MEDS: Magnesium Chloride EC TAB* 64 MG PO SCH (08:05)
[2018-01-05] MEDS: Ondansetron 40 MG VIAL* 2 MG/ML 20 ML VIAL IV PRN (08:11)
[2018-01-05 08:13] VITALS: BP 145/82
--- NOTE | 2018-01-06 00:01 | DS ---
CC: Dr. Ken Almonte; Dr. Serafin Adam; Dr. Elías Waite * DISCHARGE SUMMARY: DATE OF ADMISSION: 12/31/17 DATE OF DISCHARGE: 01/05/18 ATTENDING FOR THIS ADMISSION: Dr. Lakesha Urban MY ATTENDING FOR TODAY: Dr. Lakesha Urban * (DICTATED BY BRANDEN LAWS NP) PRIMARY CARE PROVIDER: Dr. Elías Waite SPECIALISTS INVOLVED IN THIS PATIENT'S CARE: Dr. Serafin Adam of Infectious Disease and Dr. Ken Almonte of GI. HOSPITAL COURSE: This is a 42-year-old female patient who presents to the emergency department on the 12/31/17 with a complaint of intractable abdominal pain. The patient states that she does have a longstanding history of Crohn's disease with history of colon resection. She has been in acute flare for several months and has been on high-dose prednisone and Humira. She also had a history of bowel obstruction back in November. The patient was discharged on 11/29/17 and had been following up as an outpatient; however, she stated that she was having additional abdominal pain. She went to see Dr. Almonte who referred her for an MRI of the abdomen. She underwent that MRI with gadolinium on 12/31/17, however after having her test she went home, became very, very nauseous, started vomiting, had some diaphoresis and palpitations. At that point, she called her GI doctor back who referred her to come back to the emergency department for evaluation. At that time, the patient was seen by the ER doctor, she did have some tachycardia, but then also was noted to have a fever. At this point, it was unclear whether this was related to her Crohn's disease or some other cause. She was also having significant amount of abdominal pain, which was above her baseline. The patient does take chronic pain medications at home for arthritis, but she said this felt different than her usual Crohn's pain. She also had some electrolyte disturbances and hypokalemia and for these reasons, she was admitted. The patient was aggressively hydrated with normal saline. She was given pain medication, blood cultures were drawn and sent. The patient was also profoundly weak as her tachycardia and fever persisted. She remained on Tylenol and then on the evening of her admission, had sudden bouts of diarrhea, had 10 episodes of diarrhea the first night of admission. Stool cultures were sent. She was negative for C. diff; however, she was positive for Salmonella. The patient then ultimately was treated initially with ceftriaxone, which was changed to Cipro based on her diagnosis of Salmonella. IV fluids were continued. She remained on a soft diet as tolerated. She was seen by Dr. Almonte who agreed that she should start tapering her steroids, but also evaluated her MRI and other findings and determined that these abdominal pain and diarrhea were secondary to her Salmonella enteritis and not her continuing Crohn's. The patient was also seen by Dr. Blake Adam of Infectious Disease who concurred that her Salmonella enteritis in the setting of being on Humira and high- dose prednisone made her immunocompromised and more susceptible to the Salmonella infection. Her blood cultures remained negative throughout the course of her hospitalization, fevers were well controlled and she responded to fluid management. The patient was cleared for discharge on 01/05/18. The patient was instructed to follow up with Pain Management actually at that time because of her ongoing pain issues. We discussed at length the fact that she is on Opana at home and that she would receive a short supply for her new diagnosis of Salmonella enteritis. Also, she had some gynecologic findings on her MRI in the form of ovarian cyst, which would also need to be addressed as an outpatient. The patient was agreeable to her discharge plan. DISCHARGE DIAGNOSES: 1. Salmonella enteritis. 2. Intractable diarrhea. 3. Fever. 4. Tachycardia. 5. Leukocytosis. 6. History of chronic Crohn's, status post ileal resection. 7. Chronic pain. DISCHARGE MEDICATIONS: Include: 1. Opana 5 mg q. 6 hours. 2. Humira 40 mg subcu weekly. 3. Prednisone 30 mg daily. 4. Oxycodone 10 mg q.6 hours as needed for 3 days. 5. Bactrim DS 1 tablet 2 times a day for 4 weeks. REVIEW OF SYSTEMS: On the day of discharge, the patient is not complaining of any fever, fatigue or chills. Palpitations have resolved. There is no chest pain, no shortness of breath. She has mild abdominal pain, 3/10. Denies any nausea or vomiting. Diarrhea has subsided and no further constitutional complaints. PHYSICAL EXAMINATION: The patient is alert. Vital Signs: Blood pressure 145/ 82, temperature 98.7, heart rate 78, respiratory rate 16, O2 saturations 98% on room air. HEENT: The patient is atraumatic, normocephalic. PERRLA with nonicteric sclerae. Oral mucosa is moist. Neck is supple, nontender. No JVD noted. Cardiovascular: S1, S2 are present. No murmurs, gallops or rubs. Lungs are clear bilaterally to auscultation with no adventitious breath sounds. Abdomen is soft, mild tenderness to palpation in the right lower quadrant. No rebound noted, no guarding. She has positive bowel sounds in all 4 quadrants. was deferred. Musculoskeletal: There is no clubbing, no cyanosis and no edema. She has +2 distal pulses palpable. Steady gait. Gross motor and sensation are intact. Neurologic: Grossly intact with no focal deficits. Psychiatric: She is cooperative and appropriate. DIAGNOSTIC STUDIES/LAB DATA: WBC is 5.8, RBC is 3.15, hemoglobin 10.9, hematocrit 32, platelets 136. Sodium 141, potassium 3.7, chloride 112, CO2 of 26, BUN 2, creatinine 0.69, GFR is 92.4, glucose 91, calcium 7.7. Bilirubin 0.20, AST 24, ALT 29, alk phos 41. Protein 4.8, albumin 2.7, globulin 2.1, amylase 89, lipase 27. Urinalysis is negative for any acute infective process. Imaging: Liver ultrasound showed biliary sludge of the gallbladder with no cholelithiasis or findings suggestive of acute cholecystitis, negative for any biliary dilatation and there was a small volume of nonloculated ascites. Transvaginal ultrasound showed enlarged ovaries with prominent bilateral follicular cyst and an IUD in normal position. MRI of the abdomen with kiko showed post ileal resection with unremarkable ileocolonic anastomosis, no inflammatory change in the alimentary tract evident. No gross distortion in the distribution of bowel loops or acute angulation to indicate peritoneal adhesions, negative for ascites. Consider pelvic ultrasound, assessment of bilateral ovarian cysts. DISPOSITION: The patient was discharged in stable condition. All questions were answered. FOLLOWUP: The patient was instructed to follow up with her primary care provider, Dr. Waite, as needed, with Dr. Blake Adam in the next 1 to 2 weeks, with Dr. Almonte in the next 1 to 2 weeks and pain management clinic with Dr. Rowley in the next 3 days. I also had a discussion with the patient to follow up with her space engineer regarding the findings of ovarian cyst and evaluate with her space engineer if this may be contributing to her chronic abdominal pain. Again, the patient was agreeable, stated her understanding. Medications for discharge as above. Also of significant note, the patient was very concerned about her pain control at time. It was explained to the patient several times that she would receive 3-day supply of oxycodone to assist with her transition until she gets back to the pain management clinic. BRANDEN LAWS, MIQUEL [id number]/[facility] #: [id number] ALE
== END 2018-01-05 11:35 | disposition home or self-care (01) | DRG 248 ==
LOC: ED 12:07 → MED 15:01 → OBSVTOIN 01-01 09:00
PROVIDERS: ADMIT Internal Medicine; ATTEND Internal Medicine
DX: A02.0 Salmonella enteritis (principal); K50.90 Crohn's disease, unspecified, without complications; E87.1 Hypo-osmolality and hyponatremia; G89.29 Other chronic pain; E86.0 Dehydration; N83.02 Follicular cyst of left ovary; N83.01 Follicular cyst of right ovary; M19.90 Unspecified osteoarthritis, unspecified site; Z79.891 Long term (current) use of opiate analgesic; Z79.52 Long term (current) use of systemic steroids; Z79.899 Other long term (current) drug therapy; Z88.1 Allergy status to other antibiotic agents; Z88.8 Allergy status to other drugs, medicaments and biological substances; Z91.018 Allergy to other foods; Z80.49 Family history of malignant neoplasm of other genital organs; Z80.1 Family history of malignant neoplasm of trachea, bronchus and lung; E87.6 Hypokalemia
CPT/HCPCS: 36415; 71046; 76705; 76830; 80048; 80053; 81003; 82150; 82272; 82550; 83605; 83630; 83690; 83735; 85025; 86140; 86850; 86900; 86901; 87040; 87045; 87046; 87077; 87493; 87899; 93005; 99284; A9270-GY; G0378; J0692; J0696; J2270; J2405; J2543; J2765; J3475; J3480; J3490; J7512